=== PATIENT | male | born 1955 | race American Indian/Alaskan Native ===

== ENCOUNTER 2017-07-22 11:48 | Inpatient (IN) | payer MEDICAID, OTHER ==
[2017-07-22 11:49] VITALS: BMI 20.5
--- NOTE | 2017-07-22 13:02 | C.PDOC ---
Time Seen by Provider: 07/22/17 12:32 Chief Complaint (Nursing): Chest Pain History Per: Patient History/Exam Limitations: no limitations Past Medical History Vital Signs: Last Vital Signs Temp 97.9 F 07/22/17 12:04 Pulse 81 07/22/17 12:04 Resp 18 07/22/17 12:04 BP 119/74 07/22/17 12:04 Pulse Ox 100 07/22/17 12:04 - Medical History PMH: Anxiety, Asthma, Cardia Arrhythmia, Depression, HTN, Hypercholesterolemia, Kidney Stones, Pneumonia, Chronic Kidney Disease, Schizophrenia Denies: Diabetes, Hepatitis, HIV, Seizures, Sexually Transmitted Disease Surgical History: Denies: Pacemaker - [facility] Procedures DESTRUCTION OF ASCENDING COLON, ENDO (07/09/15) ENDOSC POLYPECTOMY OF LG INTEST (05/27/15) EXCISION OF STOMACH, ENDO, DIAGN (07/09/15) INDIVID PSYCHOTHERAP NEC (04/28/15) INSERT OF MONITOR DEV INTO CHEST SUBCU/FASCIA, OPEN APPROACH (07/17/16) MEASURE OF ARTERIAL PRESSURE, PERIPHERAL, LOCKER ATTENDANT APPROACH (07/17/16) MEASUREMENT OF CARDIAC RHYTHM, EXTERNAL APPROACH (07/17/16) PSYCHIAT DRUG THERAP NEC (05/19/15) SUPPOR VERBAL PSYCHOTHER (04/28/15) Family History: States: Unknown Family Hx - Social History Hx Tobacco Use: No Hx Alcohol Use: No Hx Substance Use: Yes - Immunization History Hx Tetanus Toxoid Vaccination: Yes Hx Influenza Vaccination: Yes Hx Pneumococcal Vaccination: Yes ED Course And Treatment O2 Sat by Pulse Oximetry: 100 Disposition - Disposition Forms: [employer] (Hebrew) - Scribe Statement The provider has reviewed the documentation as recorded by the Scribangelic Gardner All medical record entries made by the Scribe were at my direction and personally dictated by me. I have reviewed the chart and agree that the record accurately reflects my personal performance of the history, physical exam, medical decision making, and the department course for this patient. I have also personally directed, reviewed, and agree with the discharge instructions and disposition.
--- NOTE | 2017-07-22 13:05 | C.PDOC ---
History Of Present Illness Patient is a 62 y/o M with hx of frequent falls, with loop monitor, presenting with dizziness. Patient reports that he became lightheaded today and fell. He reports that he hit his head when he fell but denies LOC. Reports some chest pain today. Also complaining of 1 week history of pain around loop monitor site. PMD: Dr. Parker Coating Engineer: Matt Higgins Time Seen by Provider: 07/22/17 12:32 Chief Complaint (Nursing): Chest Pain Past Medical History Vital Signs: Last Vital Signs Temp 97.9 F 07/22/17 12:04 Pulse 64 07/22/17 14:45 Resp 16 07/22/17 14:45 BP 134/86 07/22/17 14:45 Pulse Ox 100 07/22/17 14:51 - Medical History PMH: Anxiety, Asthma, Cardia Arrhythmia, Depression, HTN, Hypercholesterolemia, Kidney Stones, Pneumonia, Chronic Kidney Disease, Schizophrenia Denies: Diabetes, Hepatitis, HIV, Seizures, Sexually Transmitted Disease Surgical History: Denies: Pacemaker - [facility] Procedures DESTRUCTION OF ASCENDING COLON, ENDO (07/09/15) ENDOSC POLYPECTOMY OF LG INTEST (05/27/15) EXCISION OF STOMACH, ENDO, DIAGN (07/09/15) INDIVID PSYCHOTHERAP NEC (04/28/15) INSERT OF MONITOR DEV INTO CHEST SUBCU/FASCIA, OPEN APPROACH (07/17/16) MEASURE OF ARTERIAL PRESSURE, PERIPHERAL, BOILER COVERER APPROACH (07/17/16) MEASUREMENT OF CARDIAC RHYTHM, EXTERNAL APPROACH (07/17/16) PSYCHIAT DRUG THERAP NEC (05/19/15) SUPPOR VERBAL PSYCHOTHER (04/28/15) Family History: States: Unknown Family Hx - Social History Hx Tobacco Use: No Hx Alcohol Use: No Hx Substance Use: Yes - Immunization History Hx Tetanus Toxoid Vaccination: Yes Hx Influenza Vaccination: Yes Hx Pneumococcal Vaccination: Yes Review Of Systems Constitutional: Negative for: Fever, Chills Cardiovascular: Positive for: Chest Pain, Light Headedness Respiratory: Negative for: Cough, Shortness of Breath, SOB with Excertion, Wheezing Gastrointestinal: Negative for: Nausea, Vomiting, Abdominal Pain, Diarrhea, Constipation Neurological: Positive for: Dizziness. Negative for: Headache Physical Exam - Physical Exam Appears: Well, Non-toxic Skin: Normal Color, Warm, Dry Head: Atraumatic, Normacephalic Eye(s): bilateral: Normal Inspection, PERRL, EOMI Neck: Supple Chest: Symmetrical, Other (Loop monitor to L chest pain, non-tender, no surrounding erythema) Cardiovascular: Rhythm Regular Respiratory: No Rales, No Rhonchi, No Wheezing Gastrointestinal/Abdominal: Soft, No Tenderness Back: Normal Inspection Extremity: Normal ROM Neurological/Psych: Oriented x3 Gait: Steady ED Course And Treatment - Laboratory Results Result Diagrams: 07/22/17 13:12 07/22/17 13:12 O2 Sat by Pulse Oximetry: 100 (RA) - CT Scan/US CT HEAD WITHOUT CONTRAST Other Rad Studies (CT/US): Read By Radiologist, Radiology Report Reviewed CT/US Interpretation: FINDINGS: HEMORRHAGE: No intracranial hemorrhage. BRAIN : No mass effect or edema. Scattered focal lucencies in the subcortical and periventricular white matter suggestive for chronic microvascular ischemic change. VENTRICLES: Unremarkable. No hydrocephalus. CALVARIUM: Deformity of the left zygomatic arch. PARANASAL SINUSES: Prominent mucosal retention cyst and or polyp in the right maxillary sinus measuring 2.3 x 1.7 centimeters. MASTOID AIR CELLS: Unremarkable as visualized. No inflammatory changes. OTHER FINDINGS: Study somewhat limited by patient positioning. IMPRESSION: No acute intracranial abnormality. Mild chronic microvascular ischemic changes. 2.2 centimeter mucosal retention cyst and or polyp in the right maxillary sinus. Persistent deformity of the left zygomatic arch which may represent chronic fracture deformity. If symptoms persist, consider further evaluation with MRI. Medical Decision Making Medical Decision Making: EKG shows NSR at 78bpm with sinus arrhythmia with LVH, no acute ST changes. CT performed to r/o intracranial injury. Aspirin given after negative CT. Trop negative. Spoke to Dr. Parker who is requesting admission to hospitalist. Spoke to Dr. Rodrigues. Will transfer to tele observation for near syncope, chest pain, and for further interrogation of loop monitor Disposition - Disposition Disposition: HOSPITALIZED Disposition Time: 14:49 Condition: FAIR - Clinical Impression Clinical Impression: Dizziness
[2017-07-22 13:28] LABS: BASO % 0.5 % (0.0-2.0); EOS % 0.4 % (0.0-4.0); LYMPH # 0.9 K/uL (1.0-4.3); LYMPH % 16.8 % (20.0-40.0); MEAN CELL VOLUME 82.3 fL (80.0-94.0); MEAN CORPUSCULAR HEMOGLOBIN 27.2 pg (27.0-31.0); MEAN CORPUSCULAR HGB CONC 33.1 g/dL (33.0-37.0); MEAN PLATELET VOLUME 8.3 fL (7.2-11.7); MONO # 0.3 K/uL (0.0-0.8); RED CELL DISTRIBUTION WIDTH 14.3 % (11.5-14.5); WHITE BLOOD COUNT 5.6 K/uL (4.8-10.8)
[2017-07-22 13:34] LABS: CHLORIDE 101 mmol/L (98-107); INR 1.1; POTASSIUM 3.9 mmol/L (3.6-5.2); SODIUM 137 mmol/L (132-148)
[2017-07-22 13:36] LABS: AST/SGOT 17 U/L (17-59); BILIRUBIN,TOTAL 0.7 mg/dL (0.2-1.3); CARBON DIOXIDE 26 mmol/L (22-30); GFR AFRICAN-AMERICAN > 60; TOTAL PROTEIN 8.6 g/dL (6.3-8.3)
[2017-07-22 13:37] LABS: ALKALINE PHOSPHATASE 68 U/L (38-126); ALT/SGPT 27 U/L (21-72); BLOOD UREA NITROGEN 19 mg/dL (9-20); CALCIUM 9.8 mg/dl (8.6-10.4); GLUCOSE,RANDOM 82 mg/dL (75-110)
--- NOTE | 2017-07-22 13:59 | RAD ---
HISTORY: chest pain COMPARISON: Comparison made with chest radiograph and CTA of the chest 08/27/2016 and 08/28/2016 respectively. FINDINGS: LUNGS: No active pulmonary disease. PLEURA: No significant pleural effusion identified, no pneumothorax apparent. CARDIOVASCULAR: Small elliptical shaped radiopaque gate supervisor device within the soft tissues of the left anterior chest wall unchanged from prior studies. OSSEOUS STRUCTURES: No significant abnormalities. VISUALIZED UPPER ABDOMEN: Normal. OTHER FINDINGS: None. IMPRESSION: No acute infiltrate or effusion.
--- NOTE | 2017-07-22 14:40 | CT ---
PROCEDURE: CT HEAD WITHOUT CONTRAST. HISTORY: head trauma from fall COMPARISON: 08/28/2016 TECHNIQUE: Axial computed tomography images were obtained through the head/brain without intravenous contrast. Radiation dose: Total exam DLP = 922 mGy-cm. This CT exam was performed using one or more of the following dose reduction techniques: Automated exposure control, adjustment of the mA and/or kV according to patient size, and/or use of iterative reconstruction technique. FINDINGS: HEMORRHAGE: No intracranial hemorrhage. BRAIN: No mass effect or edema. Scattered focal lucencies in the subcortical and periventricular white matter suggestive for chronic microvascular ischemic change. VENTRICLES: Unremarkable. No hydrocephalus. CALVARIUM: Deformity of the left zygomatic arch. PARANASAL SINUSES: Prominent mucosal retention cyst and or polyp in the right maxillary sinus measuring 2.3 x 1.7 centimeters. MASTOID AIR CELLS: Unremarkable as visualized. No inflammatory changes. OTHER FINDINGS: Study somewhat limited by patient positioning. IMPRESSION: No acute intracranial abnormality. Mild chronic microvascular ischemic changes. 2.2 centimeter mucosal retention cyst and or polyp in the right maxillary sinus. Persistent deformity of the left zygomatic arch which may represent chronic fracture deformity. If symptoms persist, consider further evaluation with MRI.
[2017-07-22] MEDS ORDERED: Morphine 4 MG/ML VIAL ONE (14:43)
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
[2017-07-22] MEDS ORDERED: Iohexol 300 100 ML IJ ONE (17:39)
--- NOTE | 2017-07-22 19:58 | CT ---
EXAM: CT Chest With Intravenous Contrast CLINICAL HISTORY: 62 years old, male; Signs and symptoms; Abdominal tenderness and other: Weight loss; Shortness of breath; Additional info: Failure to thrive, weight loss, tabacco and cocain TECHNIQUE: Axial computed tomography images of the chest with intravenous contrast. All CT scans at this facility use one or more dose reduction techniques, viz.: automated exposure control; ma/kV adjustment per patient size (including targeted exams where dose is matched to indication; i.e. head); or iterative reconstruction technique. Coronal and sagittal reformatted images were created and reviewed. CONTRAST: 100 mL of visipaque 320 administered intravenously. COMPARISON: Prior images are not available for review. FINDINGS: Lungs and pleural spaces: Trachea and main bronchi are patent. There are multiple small blebs at the lung apices. There is a 5 mm left apical nodule. There is no focal consolidation. There is minimal dependent atelectasis. There is minimal scarring at the lung bases. There are no effusions. Heart and Vasculature: Heart size is normal. There is no pericardial effusion.There is no aneurysm or dissection. There is perfusion of the 3 arch vessels pulmonary vessels are normal in caliber. There are no central pulmonary emboli. Bolus timing limits evaluation of peripheral vessels. Mediastinum: The esophagus is unremarkable. There are no pathologically enlarged mediastinal or hilar nodes. There are degenerative changes in the bony structures. Thyroid: Thyroid is heterogeneous with small nodules. Bones/joints: There are degenerative changes in the osseus structures. Soft tissues: unremarkable Upper abdomen: Report to follow report for abdominal findings IMPRESSION: Early paraseptal emphysematous changes, no focal pneumonia; 5 mm left apical nodule infectious/inflammatory versus neoplastic; no focal pneumonia; small thyroid nodules As per Fleischner Society guidelines for follow-up and management of pulmonary nodules: For patients at low risk (minimal or absent history of smoking and of other known risk factors), recommend follow-up chest CT at 12 months; if unchanged, no further follow-up. For patient at high risk (history of smoking or of other known risk factors), recommend initial follow-up chest CT at 6-12 months, then at 18-24 months if no interval change. EXAM: CT Abdomen and Pelvis With Intravenous Contrast EXAM DATE/TIME: 07/22/2017 4:17 PM CLINICAL HISTORY: 62 years old, male; Signs and symptoms; Abdominal tenderness and other: Weight loss; Shortness of breath; Additional info: Failure to thrive, weight loss, tabacco and cocain TECHNIQUE: Axial computed tomography images of the abdomen and pelvis with intravenous contrast. All CT scans at this facility use one or more dose reduction techniques, viz.: automated exposure control; ma/kV adjustment per patient size (including targeted exams where dose is matched to indication; i.e. head); or iterative reconstruction technique. Coronal and sagittal reformatted images were created and reviewed. CONTRAST: 100 mL of visipaque 320 administered intravenously. COMPARISON: Prior images are not available for review. FINDINGS: Lower thorax: Refer to prior report for chest findings ABDOMEN: Liver: There are multiple small low attenuation hepatic lesions. Largest are consistent with cysts cysts. Smaller lesions are too small to characterize Gallbladder and bile ducts: Gallbladder is partially distended. Common duct is prominent. There is mild prominence of intrahepatic biliary radicles Pancreas: Pancreas is mildly atrophic. No focal lesions are seen in the pancreas. Spleen: unremarkable Adrenals: unremarkable Kidneys and ureters: There are bilateral renal cysts. There are multiple additional small low attenuation renal lesions too small to characterize. There is no pelvocaliectasis or ureterectasis. Stomach and bowel: Stomach is distended with a large amount of ingested material. Rotation is normal. There are is fluid and air throughout the small bowel. There is no obstruction. Ileocecal region is unremarkable. Appendix is unremarkable. Colon is incompletely distended which limits evaluation. Appendix: See stomach and bowel PELVIS: Bladder: Bladder is almost empty. Reproductive: The prostate is enlarged.Seminal vesicles have the expected configuration. Subperitoneal space: The presacral soft tissues are unremarkable. ABDOMEN and PELVIS: Intraperitoneal space: There is no free air or free fluid. Bones/joints: There are degenerative changes in the osseus structures. Soft tissues: There is a tiny fat-containing supraumbilical ventral hernia. Vasculature: There are vascular calcifications. There are multiple phleboliths. Lymph nodes: There is no pathologic adenopathy. IMPRESSION: Mild intra-extrahepatic biliary ductal dilatation, etiology unclear; no acute solid visceral or bowel abnormality; hepatic and renal cysts
--- NOTE | 2017-07-22 20:19 | CP.PCM.CON ---
History of Present Illness - History of Present Illness History of Present Illness: patient seen/examined. chest pain at the site of previous LOOP recorder. Signficant weight loss. recommend consult Dr. Jordan for Loop removal. Past Patient History - Infectious Disease Hx of Infectious Diseases: None - Tetanus Immunizations Tetanus Immunization: Unknown - Past Medical History & Family History Past Medical History?: Yes - Past Social History Smoking Status: Light Smoker < 10 Cigarettes Daily - CARDIAC Hx Cardia Arrhythmia: Yes Hx Hypercholesterolemia: Yes Hx Hypertension: Yes Hx Pacemaker: No - PULMONARY Hx Asthma: Yes Hx Pneumonia: Yes - NEUROLOGICAL Hx Seizures: No - HEENT Hx HEENT Problems: Yes Other/Comment: Blurred vision both eyes - RENAL Hx Chronic Kidney Disease: Yes Hx Kidney Stones: Yes - ENDOCRINE/METABOLIC Hx Endocrine Disorders: No - HEMATOLOGICAL/ONCOLOGICAL Hx Human Immunodeficiency Virus (HIV): No - INTEGUMENTARY Hx Dermatological Problems: No - MUSCULOSKELETAL/RHEUMATOLOGICAL Hx Falls: Yes - GASTROINTESTINAL Hx Gastrointestinal Disorders: Yes Other/Comment: Hx. of rectal bleeding - GENITOURINARY/GYNECOLOGICAL Hx Sexually Transmitted Disorders: No - PSYCHIATRIC Hx Anxiety: Yes Hx Depression: Yes Hx Schizophrenia: Yes Hx Substance Use: No - SURGICAL HISTORY Hx Surgeries: Yes Other/Comment: left shoulder surgery secondary to torn ligaments, head surgery 2x secondary to trauma 25 years ago - ANESTHESIA Hx Anesthesia: Yes Hx Anesthesia Reactions: No Hx Malignant Hyperthermia: No Has any member of the family had a problem w/ anesthesia?: No Meds Allergies/Adverse Reactions: Allergies Allergy/AdvReac Type Severity Reaction Status Date / Time No Known Allergies Allergy Verified 07/22/17 12:04 - Medications Medications: Current Medications Heparin Sodium (Porcine) (Heparin) 5,000 units SC Q8 VENESSA Ketorolac Tromethamine (Toradol) 30 mg IVP Q6 PRN PRN Reason: moderate pain Last Admin: 07/22/17 18:55 Dose: 30 mg Pantoprazole Sodium (Protonix Ec Tab) 40 mg PO DAILY VENESSA Pneumococcal Polyvalent Vaccine (Pneumovax 23 Vaccine) 0.5 ml IM .ONCE ONE Stop: 07/24/17 10:01 Results - Vital Signs Recent Vital Signs: Last Vital Signs Temp 97.8 F 07/22/17 17:04 Pulse 90 07/22/17 18:16 Resp 20 07/22/17 18:16 BP 134/60 07/22/17 17:04 Pulse Ox 99 07/22/17 17:04 - Labs Result Diagrams: 07/22/17 13:12 07/22/17 13:12 Labs: Laboratory Results - last 24 hr 07/22/17 07/22/17 07/22/17 13:12 13:12 13:12 WBC 5.6 RBC 5.09 Hgb 13.9 Hct 42.0 MCV 82.3 D MCH 27.2 MCHC 33.1 RDW 14.3 Plt Count 228 MPV 8.3 Neut % (Auto) 76.3 H Lymph % (Auto) 16.8 L [place] % (Auto) 6.0 Eos % (Auto) 0.4 Baso % (Auto) 0.5 Neut # 4.3 Lymph # 0.9 L [place] # 0.3 Eos # 0.0 Baso # 0.0 PT 12.1 INR 1.1 APTT 36 H Sodium 137 Potassium 3.9 Chloride 101 Carbon Dioxide 26 Anion Gap 15 BUN 19 Creatinine 1.1 Est GFR ( Amer) > 60 Est GFR (Non-Af Amer) > 60 Random Glucose 82 Calcium 9.8 Phosphorus 3.0 Magnesium 2.0 Total Bilirubin 0.7 AST 17 ALT 27 Alkaline Phosphatase 68 Troponin I < 0.0120 Total Protein 8.6 H Albumin 4.2 Globulin 4.3 H Albumin/Globulin Ratio 1.0 Urine Opiates Screen Urine Methadone Screen Ur Barbiturates Screen Ur Phencyclidine Scrn Ur Amphetamines Screen U Benzodiazepines Scrn U Oth Cocaine Metabols U Cannabinoids Screen 07/22/17 16:29 WBC RBC Hgb Hct MCV MCH MCHC RDW Plt Count MPV Neut % (Auto) Lymph % (Auto) [place] % (Auto) Eos % (Auto) Baso % (Auto) Neut # Lymph # [place] # Eos # Baso # PT INR APTT Sodium Potassium Chloride Carbon Dioxide Anion Gap BUN Creatinine Est GFR ( Amer) Est GFR (Non-Af Amer) Random Glucose Calcium Phosphorus Magnesium Total Bilirubin AST ALT Alkaline Phosphatase Troponin I Total Protein Albumin Globulin Albumin/Globulin Ratio Urine Opiates Screen Positive Urine Methadone Screen Negative Ur Barbiturates Screen Negative Ur Phencyclidine Scrn Negative Ur Amphetamines Screen Negative U Benzodiazepines Scrn Negative U Oth Cocaine Metabols Positive U Cannabinoids Screen Negative
[2017-07-23 07:35] LABS: BASO % 0.3 % (0.0-2.0); EOS # 0.1 K/uL (0.0-0.7); EOS % 2.4 % (0.0-4.0); HEMATOCRIT 39.9 % (35.0-51.0); LYMPH # 1.8 K/uL (1.0-4.3); MEAN CELL VOLUME 81.8 fL (80.0-94.0); MEAN CORPUSCULAR HEMOGLOBIN 27.1 pg (27.0-31.0); MEAN CORPUSCULAR HGB CONC 33.2 g/dL (33.0-37.0); MEAN PLATELET VOLUME 8.2 fL (7.2-11.7); MONO # 0.5 K/uL (0.0-0.8); NRBC % 0.1 % (0.0-2.0); RED CELL DISTRIBUTION WIDTH 14.8 % (11.5-14.5); WHITE BLOOD COUNT 5.4 K/uL (4.8-10.8)
[2017-07-23 08:10] LABS: CHLORIDE 99 mmol/L (98-107); SODIUM 133 mmol/L (132-148)
[2017-07-23 08:11] LABS: POTASSIUM 4.3 mmol/L (3.6-5.2)
[2017-07-23 08:13] LABS: ALB/GLOB RATIO 1.2 (1.0-2.1); BILIRUBIN,TOTAL 0.5 mg/dL (0.2-1.3); CARBON DIOXIDE 27 mmol/L (22-30); CHOLESTEROL 165 mg/dL (0-199); GFR AFRICAN-AMERICAN > 60; TOTAL PROTEIN 6.8 g/dL (6.3-8.3)
[2017-07-23 08:14] LABS: ALKALINE PHOSPHATASE 84 U/L (38-126); ALT/SGPT 23 U/L (21-72); AST/SGOT 14 U/L (17-59); BLOOD UREA NITROGEN 23 mg/dL (9-20); CALCIUM 9.1 mg/dl (8.6-10.4); GLUCOSE,RANDOM 94 mg/dL (75-110)
[2017-07-23 08:44] LABS: THYROID STIMULATING HORMONE 2.57 mIU/L (0.46-4.68)
[2017-07-23] MEDS: Pantoprazole 40 mg EC Tab PO SCH (11:00)
--- NOTE | 2017-07-23 12:03 | CP.PCM.PN ---
<Joselito Schwartz - Last Filed: 07/23/17 12:08> Subjective - Date & Time of Evaluation Date of Evaluation: 07/23/17 Time of Evaluation: 11:58 - Subjective Subjective: PGY1 Medicine Note for Dr. Rodrigues Patient seen and examined at bedside this morning. Patient reports dizziness upon standing and states that he has a fear of falling so he lays in bed. This has been a chronic problem for him. He reports loss of balance and falls. He fell yesterday which was the reason he came to the hospital. Patient is complaining of left side chest pain that radiates to his left shoulder. This is the same pain that he had upon admission to the hospital. The pain is worse when he takes a deep breath or when someone presses on his chest. He reports having a loop recorder placed one year to 18 months ago but does not remember who placed it. He has been experiencing this pain for a few days now. Denies any other complaints at this time. Denies f/c, n/v, d/c, sob, abdominal pain, headaches. Objective - Vital Signs/Intake and Output Vital Signs (last 24 hours): Temp Pulse Resp BP Pulse Ox 98.0 F 54 L 18 108/66 99 07/23/17 07:10 07/23/17 07:10 07/23/17 07:10 07/23/17 07:10 07/23/17 07:10 Intake and Output: 07/23/17 07/23/17 06:59 18:59 Intake Total 400 Balance 400 - Medications Medications: Current Medications Heparin Sodium (Porcine) (Heparin) 5,000 units SC Q8 [facility] Last Admin: 07/23/17 06:56 Dose: 5,000 units Ketorolac Tromethamine (Toradol) 30 mg IVP Q6 PRN PRN Reason: moderate pain Last Admin: 07/23/17 08:28 Dose: 30 mg Pantoprazole Sodium (Protonix Ec Tab) 40 mg PO DAILY [facility] Last Admin: 07/23/17 11:00 Dose: 40 mg Pneumococcal Polyvalent Vaccine (Pneumovax 23 Vaccine) 0.5 ml IM .ONCE ONE Stop: 07/24/17 10:01 - Labs Labs: 07/23/17 07:27 07/23/17 07:27 PT 12.1 SECONDS (9.7-12.2) 07/22/17 13:12 INR 1.1 07/22/17 13:12 APTT 36 SECONDS (21-34) H 07/22/17 13:12 - Constitutional Appears: Non-toxic, No Acute Distress, Other (very skinny) - Head Exam Head Exam: ATRAUMATIC, NORMOCEPHALIC - Eye Exam Eye Exam: EOMI, Normal appearance. absent: Scleral icterus - ENT Exam ENT Exam: Mucous Membranes Moist - Neck Exam Neck Exam: absent: Lymphadenopathy, Tenderness - Respiratory Exam Respiratory Exam: Clear to Ausculation Bilateral, NORMAL BREATHING PATTERN. absent: Accessory Muscle Use, Rales, Wheezes, Respiratory Distress - Cardiovascular Exam Cardiovascular Exam: REGULAR RHYTHM, +S1, +S2 Additional comments: reproducible chest pain on palpation on left side of chest. Patient states pain radiates to his left shoulder. - GI/Abdominal Exam GI & Abdominal Exam: Soft, Normal Bowel Sounds. absent: Distended, Firm, Guarding, Rigid, Tenderness - Extremities Exam Extremities Exam: Normal Capillary Refill, Normal Inspection. absent: Calf Tenderness, Pedal Edema - Back Exam Back Exam: absent: CVA tenderness (L), CVA tenderness (R), paraspinal tenderness , vertebral tenderness - Neurological Exam Neurological Exam: Alert, Awake, CN II-XII Intact, Oriented x3 - Psychiatric Exam Psychiatric exam: Depressed (pt is very close with his father, who was recently admitted to the hospital and is appearently not doing well, per patient), Normal Affect - Skin Skin Exam: Dry, Normal Color, Warm Assessment and Plan - Assessment and Plan (Free Text) Plan: Vertigo CT head showed: No acute intracranial abnormality. Mild chronic microvascular ischemic changes. 2.2 centimeter mucosal retention cyst and or polyp in the right maxillary sinus. Persistent deformity of the left zygomatic arch which may represent chronic fracture deformity. 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 Hx of loop recorder placed last year 07/[address] Kinsey. Pt never followed up as instructed. Toradol 30mg IV q6H PRN. STACI neg x2. F/U STACI x3 TSH 2.57 Loop recorder management as per Dr. Higgins. * Dr. Kinsey consulted for Loop Recorder removal, per Dr. Higgins Hx of substance use F/U urine drug screen. Failure to thrive 20 pounds weight loss in 2 months per pt. Pt had similar complains in 2015 with negative workup. Hx of smoking and polysubstance use. Patient had colonoscopy 07/2015 that showed colonic polyps that were hyperplastic with tubular adenoma. [employer] consulted. CT chest 07/22 - Early paraseptal emphysematous changes, no focal pneumonia; 5 mm left apical nodule infectious/inflammatory versus neoplastic; no focal pneumonia; small thyroid nodules * As per Fleischner Society guidelines for follow-up and management of pulmonary nodules: For patients at low risk (minimal or absent history of smoking and of other known risk factors), recommend follow-up chest CT at 12 months; if unchanged, no further follow-up. For patient at high risk (history of smoking or of other known risk factors), recommend initial follow-up chest CT at 6-12 months, then at 18-24 months if no interval change. CT abd and pelvis 07/22 - Mild intra-extrahepatic biliary ductal dilatation, etiology unclear; no acute solid visceral or bowel abnormality; hepatic and renal cysts urine drug screen - positive for cocaine and opioids. Patient denies opioids use (used to use heroin 10months ago) - pt was given morphine in ED prior to UDS. F/U HIV F/U hepatitis panel Depression Psych Dr. Nieves consulted, help appreciated. Prophylactic measure SCD, HepSQ, Protonix. Case discussed with Dr. Lilia Yee Efren PGY1 <Jin Rodrigues - Last Filed: 07/23/17 15:22> Objective - Vital Signs/Intake and Output Vital Signs (last 24 hours): Temp Pulse Resp BP Pulse Ox 98.0 F 54 L 18 108/66 99 07/23/17 07:10 07/23/17 07:10 07/23/17 07:10 07/23/17 07:10 07/23/17 07:10 Intake and Output: 07/23/17 07/23/17 06:59 18:59 Intake Total 400 Balance 400 - Medications Medications: Current Medications Heparin Sodium (Porcine) (Heparin) 5,000 units SC Q8 VENESSA Last Admin: 07/23/17 14:41 Dose: 5,000 units Ketorolac Tromethamine (Toradol) 30 mg IVP Q6 PRN PRN Reason: moderate pain Last Admin: 07/23/17 14:40 Dose: 30 mg Pantoprazole Sodium (Protonix Ec Tab) 40 mg PO DAILY VENESSA Last Admin: 07/23/17 11:00 Dose: 40 mg Pneumococcal Polyvalent Vaccine (Pneumovax 23 Vaccine) 0.5 ml IM .ONCE ONE Stop: 07/24/17 10:01 - Labs Labs: 07/23/17 07:27 07/23/17 07:27 PT 12.1 SECONDS (9.7-12.2) 07/22/17 13:12 INR 1.1 07/22/17 13:12 APTT 36 SECONDS (21-34) H 07/22/17 13:12 Attending/Attestation - Attestation I have personally seen and examined this patient.: Yes I have fully participated in the care of the patient.: Yes I have reviewed all pertinent clinical information, including history, physical exam and plan: Yes
--- NOTE | 2017-07-23 12:23 | CARD ---
APPROVED REPORT EXAM: Two-dimensional and M-mode echocardiogram with Doppler and color Doppler. Other Information Quality : GoodRhythm : NSR INDICATION Dizziness and Vertigo Chest Pain Syncope 2D DIMENSIONS IVSd1.0 (0.7-1.1cm)LVDd4.0 (3.9-5.9cm) PWd1.0 (0.7-1.1cm)LVDs2.6 (2.5-4.0cm) FS (%) 35.4 %LVEF (%)65.3 (>50%) M-Mode DIMENSIONS Left Atrium (MM)3.52 (2.5-4.0cm)Aortic Root3.69 (2.2-3.7cm) Aortic Cusp Exc.2.34 (1.5-2.0cm) Mitral Valve MV E Cxupsqkv70.1cm/sMV A Xhqhsfoh71.4cm/sE/A ratio1.0 TDI E/Lateral E'0.0E/Medial E'0.0 Tricuspid Valve TR Peak [id number]/sTR Peak [id number] LEFT VENTRICLE The left ventricle is normal size. There is normal left ventricular wall thickness. Left ventricle systolic function is normal. The Ejection Fraction is 65-70%. There is normal LV segmental wall motion. The left ventricular diastolic function is normal. There is no ventricular septal defect visualized. RIGHT VENTRICLE The right ventricle is normal size. The right ventricular systolic function is normal. ATRIA The left atrium is borderline dilated. The right atrium size is normal. AORTIC VALVE The aortic valve is mildly sclerotic. The aortic valve is probably trileaflet. No aortic regurgitation is present. There is no aortic valvular stenosis. MITRAL VALVE The mitral valve is normal in structure. There is no evidence of mitral valve prolapse. Mitral regurgitation is trace. TRICUSPID VALVE The tricuspid valve is normal in structure. There is trace tricuspid regurgitation. There is no pulmonary hypertension. PULMONIC VALVE The pulmonic valve is not well visualized. There is no pulmonic valvular regurgitation. GREAT VESSELS The aortic root is mildly enlarged. The ascending aorta is normal in size. The IVC is normal in size and collapses >50% with inspiration. PERICARDIAL EFFUSION There is no pericardial effusion. <Conclusion> Left ventricle systolic function is normal. The Ejection Fraction is 65-70%. The left ventricular diastolic function is normal. No aortic regurgitation is present. The aortic root is mildly enlarged. Mitral regurgitation is trace.
--- NOTE | 2017-07-23 14:37 | PCM.PSYCH ---
Initial Psychiatric Evaluation - Initial Psychiatric Evaluation Type of Admission: Voluntary Legal Status: Capacity Chief Complaint (in patient's own words): "Im in a lot of pain" History of Present Illness and Precipitating Events[facility] and recent substance use Pt is a 62 year old male with a PMH of High cholesterol and Vertigo who presented to the ED on 07/22/2017 because he was experiencing pain in the area where his loop recorder is located. Pt reports that lately his depression "comes and goes". He states this stems from learning his father has been diagnosed with cancer and his mother's recent decline in health. He states he feels "helpless" since he cant be with his parents who live far. Pt also reports that 3 days ago he smoked cocaine in order to "relieve some of this pain". Pt reports sporadic use in the past but increased it recently due to current life stressors. Pt denies any other substance use. Denies alcohol use. Smokes 4 cigarettes a day. Pt reports a psychiatric history of Bipolar disorder and Schizophrenia. He reports not taking any psychiatric medications at this time since he stopped taking them approximately 3 years ago when he felt better. After care discussed. Pt mentioned "there are better ways to deal with my depression and my pain than to use cocaine so I know better". Pt reports that he would like to follow up with psych. Current Medications: Active Medications Generic Name Dose Route Start Last Admin Trade Name Freq PRN Reason Stop Dose Admin Heparin Sodium (Porcine) 5,000 units 07/22/17 22:00 07/23/17 06:56 Heparin SC 5,000 units Q8 VENESSA Administration Ketorolac Tromethamine 30 mg 07/22/17 16:28 07/23/17 08:28 Toradol IVP 30 mg Q6 PRN Administration moderate pain Pantoprazole Sodium 40 mg 07/23/17 10:00 07/23/17 11:00 Protonix Ec Tab PO 40 mg DAILY VENESSA Administration Pneumococcal Polyvalent Vaccine 0.5 ml 07/24/17 10:00 Pneumovax 23 Vaccine IM 07/24/17 10:01 .ONCE ONE Past Psychiatric History - Past Psychiatric History Previous Treatment History: Inpatient Pertinent Medical Hx (Current Medical&Sleep Prob, Allergies): Allergies Allergy/AdvReac Type Severity Reaction Status Date / Time No Known Allergies Allergy Verified 07/22/17 12:04 Meclizine [Meclizine*] 25 mg PO Q6 #0 tab 07/23/16 Review of Systems - Review of Systems All systems: reviewed and no additional remarkable complaints except - Psychiatric Psychiatric: Anxiety, Depression, Irritability. absent: Hallucinations, Homicidal Ideation, Suicidal Ideation Mental Status Examination - Personal Presentation Personal Presentation: Looks stated age - Affect Affect: Constricted - Motor Activity Motor Activity: Calm - Reliability in Providing Information Reliability in Providing Information: Good - Speech Speech: Organized - Mood Mood: Depressed - Formal Thought Process Formal Thought Process: No Impairment - Obsessions/Compulsions Obsessions: No Compulsions: No - Cognitive Functions Orientation: Person, Place, Situation, Time Sensorium: Alert Attention/Concentration: Attentive Abstract Thinking: [place] Estimate of Intelligence: Average Judgement: Imparied, as evidence by: Poor judgement, Intact, as evidence by: Insight regarding need for hospitalization Memory: Recent intact, as evidence by: Ability to recall events of the day, Remote intact, as evidenced by: Abilit to recall sig. life events - Risk Risk: Diminished functioning - Strength & Assets Inventory Strength & Assets Inventory: Family support, Skills, Interests/hobbies, Life experience, Cooperative - Limitations Limitations: Living alone DSM 5 DX - DSM 5 DSM 5 Diagnosis: Cocaine use disorder severe Bipolar disorder mixed moderate - Recommended/Plan of Treatment Treatment Recommendations and Plan of Treatment: Cocaine use disorder severe Bipolar disorder mixed moderate
--- NOTE | 2017-07-23 15:34 | VASCLAB ---
PROCEDURE: HISTORY: syncope COMPARISON: None available. TECHNIQUE: Grayscale and duplex Doppler evaluation of the cervical carotid and vertebral arteries were performed. The common carotid, carotid bifurcations and cervical Internal Carotid Artery (ICA) and proximal External Carotid Artery (ECA) were evaluated. The vertebral arteries were evaluated for gross patency and flow direction. Report prepared by Paco Cardenas, BS, RVT FINDINGS: RIGHT CAROTID ARTERIES: 1. Common Carotid Artery: No significant focal plaque formation of the right common carotid artery. Maximum Peak Systolic velocity: 85 cm/sec: End-diastolic velocity 21 cm/sec. 2. Carotid Bifurcation: plaque formation. Maximum Peak Systolic velocity: 88 cm/sec: End-diastolic velocity 18 cm/sec. 3. Internal Carotid Artery: Plaque description: 3.1. Proximal Segment: Peak systolic velocity 87 cm/sec: End-diastolic velocity 31 cm/sec - % stenosis 0-15% 3.2. Middle Segment: Peak systolic velocity 111 cm/sec: End-diastolic velocity 39 cm/sec - % stenosis 0-15% 3.3. Distal Segment: Peak systolic velocity 87 cm/sec: End-diastolic velocity 31 cm/sec - % stenosis 0-15% 4. External Carotid Artery: No significant focal plaque formation. Peak systolic velocity 82 cm/sec 5. ICA/CCA Ratio: 1.3 LEFT CAROTID ARTERIES: 1. Common Carotid Artery: No significant focal plaque formation of the left common carotid artery. Maximum Peak Systolic velocity: 91 cm/sec: End-diastolic velocity 23 cm/sec. 2. Carotid Bifurcation: plaque formation. Maximum Peak Systolic velocity: 81 cm/sec: End-diastolic velocity 18 cm/sec. 3. Internal Carotid Artery: Plaque description: 3.1. Proximal Segment: Peak systolic velocity 68 cm/sec: End-diastolic velocity 26 cm/sec - % stenosis 0-15% 3.2. Middle Segment: Peak systolic velocity 91 cm/sec: End-diastolic velocity 36 cm/sec - % stenosis 0-15% 3.3. Distal Segment: Peak systolic velocity 91 cm/sec: End-diastolic velocity 36 cm/sec - % stenosis 0-15% 4. External Carotid Artery: No significant focal plaque formation. Peak systolic velocity 79 cm/sec 5. ICA/CCA Ratio: 79 VERTEBRAL ARTERIES: 1. Right Vertebral Artery: The right vertebral artery flow direction is antegrade. 2. Left Vertebral Artery: The left vertebral artery flow direction is antegrade. OTHER FINDINGS: 1. Right Brachial Blood pressure: 132 mmHg. 2. Left Brachial Blood pressure: 128 mmHg. IMPRESSION: RIGHT: Duplex scan does not suggest hemodynamically significant stenosis of the right extracranial carotid arteries. LEFT: Duplex scan does not suggest hemodynamically significant stenosis of the left extracranial carotid arteries.
[2017-07-23 16:55] VITALS: RESP 20
--- NOTE | 2017-07-23 19:15 | CARD ---
APPROVED REPORT EKG Measurement Heart [id number] MD [id number] <Conclusion> Normal sinus rhythm with sinus arrhythmia Right atrial enlargement Voltage criteria for left ventricular hypertrophy Abnormal ECG
--- NOTE | 2017-07-24 06:52 | CP.PCM.PN ---
<Joselito Schwartz - Last Filed: 07/24/17 14:09> Subjective - Date & Time of Evaluation Date of Evaluation: 07/24/17 Time of Evaluation: 06:46 - Subjective Subjective: PGY1 Medicine note for Dr. Rodrigues Patient seen and examined at bedside this morning. Patient is still complaining of left sided chest pain radiating to his left shoulder. Patient states he is still experiencing dizziness and loss of balance with standing. He states he needs the nurses assistance to help him to the bathroom because he is afraid of falling. Patient reports while in the bathroom, he noticed bright red blood in his stool and on the tissue paper when he wiped. Patient also reported night sweats last night that caused him to need a new gown and sheets changed. Denies any other symptoms at this time. Objective - Vital Signs/Intake and Output Vital Signs (last 24 hours): Temp Pulse Resp BP Pulse Ox 97.6 F 57 L 20 116/64 98 07/23/17 23:09 07/24/17 05:23 07/24/17 05:23 07/24/17 05:23 07/23/17 23:09 Intake and Output: 07/23/17 07/24/17 18:59 06:59 Intake Total 350 Balance 350 - Medications Medications: Current Medications Heparin Sodium (Porcine) (Heparin) 5,000 units SC Q8 [facility] Last Admin: 07/24/17 05:06 Dose: 5,000 units Ketorolac Tromethamine (Toradol) 30 mg IVP Q6 PRN PRN Reason: moderate pain Last Admin: 07/24/17 05:02 Dose: 30 mg Pantoprazole Sodium (Protonix Ec Tab) 40 mg PO DAILY [facility] Last Admin: 07/23/17 11:00 Dose: 40 mg Pneumococcal Polyvalent Vaccine (Pneumovax 23 Vaccine) 0.5 ml IM .ONCE ONE Stop: 07/24/17 10:01 - Labs Labs: 07/23/17 07:27 07/23/17 07:27 PT 12.1 SECONDS (9.7-12.2) 07/22/17 13:12 INR 1.1 07/22/17 13:12 APTT 36 SECONDS (21-34) H 07/22/17 13:12 - Constitutional Appears: Non-toxic, No Acute Distress - Head Exam Head Exam: ATRAUMATIC, NORMOCEPHALIC - Eye Exam Eye Exam: EOMI, Normal appearance. absent: Scleral icterus - ENT Exam ENT Exam: Mucous Membranes Moist - Neck Exam Neck Exam: Full ROM. absent: Lymphadenopathy, Tenderness - Respiratory Exam Respiratory Exam: Clear to Ausculation Bilateral, NORMAL BREATHING PATTERN. absent: Accessory Muscle Use, Rales, Wheezes, Respiratory Distress - Cardiovascular Exam Cardiovascular Exam: REGULAR RHYTHM, +S1, +S2 Additional comments: reproducible chest pain on palpation on left side of chest. Patient states pain radiates to his left shoulder. - GI/Abdominal Exam GI & Abdominal Exam: Soft, Normal Bowel Sounds. absent: Distended, Firm, Guarding, Rigid, Tenderness - Extremities Exam Extremities Exam: Normal Capillary Refill, Normal Inspection. absent: Calf Tenderness, Pedal Edema, Tenderness - Neurological Exam Neurological Exam: Alert, Awake, Oriented x3 - Psychiatric Exam Psychiatric exam: Normal Affect, Normal Mood - Skin Skin Exam: Dry, Normal Color, Warm Assessment and Plan - Assessment and Plan (Free Text) Plan: Vertigo CT head 07/22/17 - No acute intracranial abnormality. Mild chronic microvascular ischemic changes. 2.2 centimeter mucosal retention cyst and or polyp in the right maxillary sinus. Persistent deformity of the left zygomatic arch which may represent chronic fracture deformity. ECHO 07/22/17 - Left ventricle systolic function is normal. The Ejection Fraction is 65-70%. The left ventricular diastolic function is normal. No aortic regurgitation is present. The aortic root is mildly enlarged. Mitral regurgitation is trace. 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 Hx of loop recorder placed last year 07/[address] Kinsey. Pt never followed up as instructed. Toradol 30mg IV q6H PRN. Percocet 5/325mg PO q6H PRN STACI neg x3 TSH 2.57 Loop recorder management as per Dr. Higgins. * Dr. Kinsey consulted for Loop Recorder removal, per Dr. Higgins Reported Blood in stool Started on Colace 100mg BID f/u fecal occult Hx of substance use urine drug screen - positive for cocaine and opioids. Patient denies opioids use (stated he used to use heroin 10months ago yesterday but stated today he has never abused opioids including heroin) - pt was given morphine in ED prior to UDS. Failure to thrive 20 pounds weight loss in 2 months per pt. Pt had similar complains in 2015 with negative workup. Hx of smoking and polysubstance use. Patient had colonoscopy 07/2015 that showed colonic polyps that were hyperplastic with tubular adenoma. [employer] consulted. CT chest 07/22 - Early paraseptal emphysematous changes, no focal pneumonia; 5 mm left apical nodule infectious/inflammatory versus neoplastic; no focal pneumonia; small thyroid nodules * As per Fleischner Society guidelines for follow-up and management of pulmonary nodules: For patients at low risk (minimal or absent history of smoking and of other known risk factors), recommend follow-up chest CT at 12 months; if unchanged, no further follow-up. For patient at high risk (history of smoking or of other known risk factors), recommend initial follow-up chest CT at 6-12 months, then at 18-24 months if no interval change. CT abd and pelvis 07/22 - Mild intra-extrahepatic biliary ductal dilatation, etiology unclear; no acute solid visceral or bowel abnormality; hepatic and renal cysts F/U HIV hepatitis panel - all negative Depression Psych Dr. Nieves consulted, help appreciated. Prophylactic measure SCD, HepSQ, Protonix. Case discussed with Dr. Lilia Yee Efren PGY1 <Jin Rodrigues - Last Filed: 07/24/17 15:55> Objective - Vital Signs/Intake and Output Vital Signs (last 24 hours): Temp Pulse Resp BP Pulse Ox 97.9 F 55 L 20 109/61 99 07/24/17 15:34 07/24/17 15:34 07/24/17 15:34 07/24/17 15:34 07/24/17 15:34 Intake and Output: 07/24/17 07/24/17 06:59 18:59 Intake Total 400 Balance 400 - Medications Medications: Current Medications Docusate Sodium (Colace) 100 mg PO BID [facility] Last Admin: 07/24/17 10:46 Dose: 100 mg Heparin Sodium (Porcine) (Heparin) 5,000 units SC Q8 [facility] Last Admin: 07/24/17 13:31 Dose: 5,000 units Ketorolac Tromethamine (Toradol) 30 mg IVP Q6 PRN PRN Reason: moderate pain Last Admin: 07/24/17 05:02 Dose: 30 mg Oxycodone/Acetaminophen (Percocet 5/325 Mg Tab) 1 tab PO Q6H PRN PRN Reason: Pain, severe (8-10) Stop: 07/27/17 10:16 Last Admin: 07/24/17 11:41 Dose: 1 tab Pantoprazole Sodium (Protonix Ec Tab) 40 mg PO DAILY [facility] Last Admin: 07/24/17 09:03 Dose: 40 mg - Labs Labs: 07/23/17 07:27 07/23/17 07:27 PT 12.1 SECONDS (9.7-12.2) 07/22/17 13:12 INR 1.1 07/22/17 13:12 APTT 36 SECONDS (21-34) H 07/22/17 13:12 Attending/Attestation - Attestation I have personally seen and examined this patient.: Yes I have fully participated in the care of the patient.: Yes I have reviewed all pertinent clinical information, including history, physical exam and plan: Yes Notes (Text): 07/24/17 15:55 Medical attending: Patient was seen and examined by me, agrees the above note by medical officer. Patient reported that he was still having some tenderness the left chest area where his monitor is. He also reported having some blood on his stool, a sample of the fecal occult is pending at this time. Hopefully at some point the monitored He's currently on Toradol he also had Percocet as well for pain Thank you very much, Jin Rodrigues
[2017-07-24] MEDS: Pantoprazole 40 mg EC Tab PO SCH (09:03)
[2017-07-24] MEDS ORDERED: Influenza Vaccine 60 mcg/0.5 mL SYR (4YR UP) IM ONE (10:00)
[2017-07-24] MEDS ORDERED: Pneumococcal 23-Valent Vaccine IM ONE (10:00)
[2017-07-24] MEDS: Oxycodone/Acetaminophen 5/325 mg Tab PO PRN ×2 (11:41→17:40)
[2017-07-25] MEDS: Oxycodone/Acetaminophen 5/325 mg Tab PO PRN ×3 (00:24→21:45)
[2017-07-25 06:30] LABS: BASO % 0.3 % (0.0-2.0); EOS # 0.1 K/uL (0.0-0.7); EOS % 1.9 % (0.0-4.0); HEMATOCRIT 40.7 % (35.0-51.0); LYMPH # 1.5 K/uL (1.0-4.3); MEAN CELL VOLUME 82.7 fL (80.0-94.0); MEAN CORPUSCULAR HEMOGLOBIN 27.1 pg (27.0-31.0); MEAN CORPUSCULAR HGB CONC 32.8 g/dL (33.0-37.0); MEAN PLATELET VOLUME 8.3 fL (7.2-11.7); MONO # 0.6 K/uL (0.0-0.8); MONO % 10.9 % (0.0-10.0); WHITE BLOOD COUNT 5.8 K/uL (4.8-10.8)
--- NOTE | 2017-07-25 06:51 | CP.PCM.PN ---
Subjective - Date & Time of Evaluation Date of Evaluation: 07/25/17 Time of Evaluation: 06:50 - Subjective Subjective: PGY1 Medicine Note for Dr. Rodrigues Patient seen and examined at bedside this morning. Patient reports that he is still experiencing chest pain that wrapsaround to his shoulder and back. The patient reports night sweats for the past two nights. He states that he has been in a lot of pain during the night and that he is having difficulty getting comfortable due to the pain. Patient states he is still dizzy when attempting to stand up and get walk to the bathroom. patient denies seeing any blood with his bowel movement last night or this morning. Denies feeling of fever or chills , d/c, n/v, sob or headaches. Objective - Vital Signs/Intake and Output Vital Signs (last 24 hours): Temp Pulse Resp BP Pulse Ox 97.4 F L 56 L 20 103/65 100 07/24/17 23:10 07/25/17 03:59 07/24/17 23:10 07/24/17 23:10 07/24/17 23:10 Intake and Output: 07/24/17 07/25/17 18:59 06:59 Intake Total 400 480 Output Total 2275 Balance 400 -1795 - Medications Medications: Current Medications Docusate Sodium (Colace) 100 mg PO BID [facility] Last Admin: 07/24/17 17:36 Dose: 100 mg Heparin Sodium (Porcine) (Heparin) 5,000 units SC Q8 [facility] Last Admin: 07/24/17 21:32 Dose: 5,000 units Ketorolac Tromethamine (Toradol) 30 mg IVP Q6 PRN PRN Reason: moderate pain Last Admin: 07/24/17 05:02 Dose: 30 mg Oxycodone/Acetaminophen (Percocet 5/325 Mg Tab) 1 tab PO Q6H PRN PRN Reason: Pain, severe (8-10) Stop: 07/27/17 10:16 Last Admin: 07/25/17 00:24 Dose: 1 tab Pantoprazole Sodium (Protonix Ec Tab) 40 mg PO DAILY [facility] Last Admin: 07/24/17 09:03 Dose: 40 mg - Labs Labs: 07/25/17 06:05 07/23/17 07:27 PT 12.1 SECONDS (9.7-12.2) 07/22/17 13:12 INR 1.1 07/22/17 13:12 APTT 36 SECONDS (21-34) H 07/22/17 13:12 - Constitutional Appears: Non-toxic, No Acute Distress - Head Exam Head Exam: ATRAUMATIC, NORMOCEPHALIC - Eye Exam Eye Exam: EOMI, Normal appearance - ENT Exam ENT Exam: Mucous Membranes Moist - Respiratory Exam Respiratory Exam: Clear to Ausculation Bilateral, NORMAL BREATHING PATTERN. absent: Accessory Muscle Use, Rales, Wheezes, Respiratory Distress - Cardiovascular Exam Cardiovascular Exam: REGULAR RHYTHM, +S1, +S2 Additional comments: reproducible chest pain on palpation on left side of chest. Patient states pain radiates to his left shoulder. - GI/Abdominal Exam GI & Abdominal Exam: Soft, Normal Bowel Sounds. absent: Distended, Firm, Guarding, Rigid, Tenderness - Extremities Exam Extremities Exam: absent: Calf Tenderness, Pedal Edema - Neurological Exam Neurological Exam: Alert, Awake, Oriented x3 - Psychiatric Exam Psychiatric exam: Normal Affect, Normal Mood - Skin Skin Exam: Dry, Normal Color, Warm Assessment and Plan - Assessment and Plan (Free Text) Plan: Vertigo CT head 07/22/17 - No acute intracranial abnormality. Mild chronic microvascular ischemic changes. 2.2 centimeter mucosal retention cyst and or polyp in the right maxillary sinus. Persistent deformity of the left zygomatic arch which may represent chronic fracture deformity. ECHO 07/22/17 - Left ventricle systolic function is normal. The Ejection Fraction is 65-70%. The left ventricular diastolic function is normal. No aortic regurgitation is present. The aortic root is mildly enlarged. Mitral regurgitation is trace. 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 Hx of loop recorder placed last year 07/[address] Kinsey. Pt never followed up as instructed. Toradol 30mg IV q6H PRN. Percocet 5/325mg PO q6H PRN STACI neg x3 TSH 2.57 Loop recorder management as per Dr. Higgins. * Dr. Kinsey consulted for Loop Recorder removal, per Dr. Higgins * Per Dr. Kinsey's note, Patient will have loop recorder removed tomorrow, , under local anaesthesia. Reported Blood in stool Started on Colace 100mg BID fecal occult - negative Hx of substance use urine drug screen - positive for cocaine and opioids. Patient denies opioids use (stated he used to use heroin 10months ago yesterday but stated today he has never abused opioids including heroin) - pt was given morphine in ED prior to UDS. Failure to thrive 20 pounds weight loss in 2 months per pt. Pt had similar complains in 2014 with negative workup. Hx of smoking and polysubstance use. Patient had colonoscopy 07/2015 that showed colonic polyps that were hyperplastic with tubular adenoma. [employer] consulted. CT chest 07/22 - Early paraseptal emphysematous changes, no focal pneumonia; 5 mm left apical nodule infectious/inflammatory versus neoplastic; no focal pneumonia; small thyroid nodules * As per Fleischner Society guidelines for follow-up and management of pulmonary nodules: For patients at low risk (minimal or absent history of smoking and of other known risk factors), recommend follow-up chest CT at 12 months; if unchanged, no further follow-up. For patient at high risk (history of smoking or of other known risk factors), recommend initial follow-up chest CT at 6-12 months, then at 18-24 months if no interval change. CT abd and pelvis 07/22 - Mild intra-extrahepatic biliary ductal dilatation, etiology unclear; no acute solid visceral or bowel abnormality; hepatic and renal cysts F/U HIV hepatitis panel - all negative Depression Psych Dr. Nieves consulted, help appreciated. Prophylactic measure SCD, HepSQ, Protonix. Case discussed with Dr. Lilia Yee Efren PGY1
[2017-07-25 07:39] LABS: CHLORIDE 100 mmol/L (98-107); SODIUM 136 mmol/L (132-148)
[2017-07-25 07:41] LABS: BILIRUBIN,TOTAL 0.4 mg/dL (0.2-1.3); GFR AFRICAN-AMERICAN > 60
[2017-07-25 07:42] LABS: ALB/GLOB RATIO 1.1 (1.0-2.1); ALKALINE PHOSPHATASE 67 U/L (38-126); ALT/SGPT 25 U/L (21-72); AST/SGOT 17 U/L (17-59); BLOOD UREA NITROGEN 13 mg/dL (9-20); CARBON DIOXIDE 28 mmol/L (22-30); GLUCOSE,RANDOM 81 mg/dL (75-110); TOTAL PROTEIN 7.2 g/dL (6.3-8.3)
[2017-07-25 07:43] LABS: CALCIUM 9.1 mg/dl (8.6-10.4)
[2017-07-25 07:47] LABS: POTASSIUM 5.2 mmol/L (3.6-5.2)
[2017-07-25] MEDS: Pantoprazole 40 mg EC Tab PO SCH (09:09)
--- NOTE | 2017-07-25 16:13 | VASCLAB ---
PROCEDURE: Lower Extremity Venous Duplex Exam. HISTORY: calf pain b/l, hx of DVT PRIORS: None. TECHNIQUE: Bilateral common femoral, femoral, popliteal and posterior tibial, peroneal and great saphenous veins were evaluated. Flow was assessed with color Doppler, compressibility, assessment of phasic flow and augmentation response. Report prepared by LISA Brown, RVT FINDINGS: RIGHT: 1. Common Femoral Vein: 1.1. Compressibility - Fully compressible: Thrombus - None : Flow - Phasic: Augmentation -Normal: Reflux - None. 2. Femoral Vein: 2.1. Compressibility - Fully compressible: Thrombus - None : Flow - Phasic: Augmentation -Normal: Reflux - None. 3. Popliteal Vein: 3.1. Compressibility - Fully compressible: Thrombus - None : Flow - Phasic: Augmentation -Normal: Reflux - None. 4. Posterior Tibial Vein: 4.1. Compressibility - Fully compressible: Thrombus - None: Flow - Phasic: Augmentation -Normal: Reflux - None. 5. Peroneal Vein: 5.1. Compressibility - Fully compressible: Thrombus - None: Flow - Phasic: Augmentation -Normal: Reflux - None. 6. Great Saphenous Vein: 6.1. Compressibility - Fully compressible: Thrombus - None: Flow - Phasic: Augmentation - Normal: Reflux - None. LEFT: 1. Common Femoral Vein: 1.1. Compressibility - Fully compressible: Thrombus - None: Flow - Phasic: Augmentation -Normal: Reflux - None. 2. Femoral Vein: 2.1. Compressibility - Fully compressible: Thrombus - None: Flow - Phasic: Augmentation -Normal: Reflux - None. 3. Popliteal Vein: 3.1. Compressibility - Fully compressible: Thrombus - None : Flow - Phasic: Augmentation -Normal: Reflux - None. 4. Posterior Tibial Vein: 4.1. Compressibility - Fully compressible: Thrombus - None: Flow - Phasic: Augmentation -Normal: Reflux - None. 5. Peroneal Vein: 5.1. Compressibility - Fully compressible: Thrombus - None: Flow - Phasic: Augmentation -Normal: Reflux - None. 6. Great Saphenous Vein: 6.1. Compressibility - Fully compressible: Thrombus - None: Flow - Phasic: Augmentation - Normal: Reflux - Severe. OTHER FINDINGS: Right: None significant. Left: Valvular incompetence of the left greater saphenous vein. IMPRESSION: Right: No evidence of deep or superficial vein thrombosis of the right lower extremity. Normal valve function noted of the right side. Left: No evidence of deep or superficial vein thrombosis of the left lower extremity.
--- NOTE | 2017-07-25 16:22 | CP.PCM.CON ---
Past Patient History - Infectious Disease Hx of Infectious Diseases: None - Tetanus Immunizations Tetanus Immunization: Unknown - Past Medical History & Family History Past Medical History?: Yes - Past Social History Smoking Status: Light Smoker < 10 Cigarettes Daily - CARDIAC Hx Cardia Arrhythmia: Yes Hx Hypercholesterolemia: Yes Hx Hypertension: Yes Hx Pacemaker: No - PULMONARY Hx Asthma: Yes Hx Pneumonia: Yes - NEUROLOGICAL Hx Seizures: No - HEENT Hx HEENT Problems: Yes Other/Comment: Blurred vision both eyes - RENAL Hx Chronic Kidney Disease: Yes Hx Kidney Stones: Yes - ENDOCRINE/METABOLIC Hx Endocrine Disorders: No - HEMATOLOGICAL/ONCOLOGICAL Hx Human Immunodeficiency Virus (HIV): No - INTEGUMENTARY Hx Dermatological Problems: No - MUSCULOSKELETAL/RHEUMATOLOGICAL Hx Falls: Yes - GASTROINTESTINAL Hx Gastrointestinal Disorders: Yes Other/Comment: Hx. of rectal bleeding - GENITOURINARY/GYNECOLOGICAL Hx Sexually Transmitted Disorders: No - PSYCHIATRIC Hx Anxiety: Yes Hx Depression: Yes Hx Schizophrenia: Yes Hx Substance Use: No - SURGICAL HISTORY Hx Surgeries: Yes Other/Comment: left shoulder surgery secondary to torn ligaments, head surgery 2x secondary to trauma 25 years ago - ANESTHESIA Hx Anesthesia: Yes Hx Anesthesia Reactions: No Hx Malignant Hyperthermia: No Has any member of the family had a problem w/ anesthesia?: No Meds Allergies/Adverse Reactions: Allergies Allergy/AdvReac Type Severity Reaction Status Date / Time No Known Allergies Allergy Verified 07/22/17 12:04 - Medications Medications: Current Medications Docusate Sodium (Colace) 100 mg PO BID [facility] Last Admin: 07/25/17 09:09 Dose: 100 mg Heparin Sodium (Porcine) (Heparin) 5,000 units SC Q8 [facility] Last Admin: 07/25/17 13:12 Dose: 5,000 units Ketorolac Tromethamine (Toradol) 30 mg IVP Q6 PRN PRN Reason: moderate pain Last Admin: 07/24/17 05:02 Dose: 30 mg Oxycodone/Acetaminophen (Percocet 5/325 Mg Tab) 1 tab PO Q6H PRN PRN Reason: Pain, severe (8-10) Stop: 07/27/17 10:16 Last Admin: 07/25/17 09:11 Dose: 1 tab Pantoprazole Sodium (Protonix Ec Tab) 40 mg PO DAILY [facility] Last Admin: 07/25/17 09:09 Dose: 40 mg Results - Vital Signs Recent Vital Signs: Last Vital Signs Temp 97.7 F 07/25/17 07:00 Pulse 63 07/25/17 07:05 Resp 20 07/25/17 07:00 BP 132/84 07/25/17 07:00 Pulse Ox 100 07/25/17 07:00 - Labs Result Diagrams: 07/25/17 06:05 07/25/17 06:05 Labs: Laboratory Results - last 24 hr 07/25/17 07/25/17 07/25/17 06:05 06:05 08:41 WBC 5.8 RBC 4.92 Hgb 13.4 Hct 40.7 MCV 82.7 MCH 27.1 MCHC 32.8 L RDW 15.0 H Plt Count 217 MPV 8.3 Neut % (Auto) 60.9 Lymph % (Auto) 26.0 Real % (Auto) 10.9 H Eos % (Auto) 1.9 Baso % (Auto) 0.3 Neut # 3.5 Lymph # 1.5 Real # 0.6 Eos # 0.1 Baso # 0.0 Sodium 136 Potassium 5.2 Chloride 100 Carbon Dioxide 28 Anion Gap 13 BUN 13 Creatinine 1.1 Est GFR ( Amer) > 60 Est GFR (Non-Af Amer) > 60 Random Glucose 81 Calcium 9.1 Total Bilirubin 0.4 AST 17 D ALT 25 Alkaline Phosphatase 67 Total Protein 7.2 Albumin 3.7 Globulin 3.5 Albumin/Globulin Ratio 1.1 Stool Occult Blood Negative Assessment & Plan - Assessment and Plan (Free Text) Assessment: Patient has had ILR for about 1 year and no arrhythmias detected. Patient reports discomfort at ILR site. Will schedule removal tomorrow under local anesthesia.
[2017-07-26] MEDS: Oxycodone/Acetaminophen 5/325 mg Tab PO PRN ×3 (05:55→18:58)
[2017-07-26 06:45] LABS: BASO % 0.5 % (0.0-2.0); EOS # 0.1 K/uL (0.0-0.7); EOS % 0.8 % (0.0-4.0); LYMPH # 1.5 K/uL (1.0-4.3); LYMPH % 16.8 % (20.0-40.0); MEAN CELL VOLUME 82.4 fL (80.0-94.0); MEAN CORPUSCULAR HEMOGLOBIN 27.5 pg (27.0-31.0); MEAN CORPUSCULAR HGB CONC 33.4 g/dL (33.0-37.0); MEAN PLATELET VOLUME 8.1 fL (7.2-11.7); MONO # 0.9 K/uL (0.0-0.8); MONO % 10.1 % (0.0-10.0); NRBC % 0.1 % (0.0-2.0); RED CELL DISTRIBUTION WIDTH 14.9 % (11.5-14.5)
[2017-07-26 07:04] LABS: CHLORIDE 98 mmol/L (98-107); POTASSIUM 4.4 mmol/L (3.6-5.2); SODIUM 137 mmol/L (132-148)
[2017-07-26 07:06] LABS: AST/SGOT 22 U/L (17-59); BILIRUBIN,TOTAL 0.3 mg/dL (0.2-1.3); CARBON DIOXIDE 29 mmol/L (22-30); GFR AFRICAN-AMERICAN > 60
[2017-07-26 07:07] LABS: ALKALINE PHOSPHATASE 71 U/L (38-126); ALT/SGPT 21 U/L (21-72); BLOOD UREA NITROGEN 15 mg/dL (9-20); CALCIUM 9.2 mg/dl (8.6-10.4); GLUCOSE,RANDOM 84 mg/dL (75-110); TOTAL PROTEIN 7.8 g/dL (6.3-8.3)
[2017-07-26] MEDS: Pantoprazole 40 mg EC Tab PO SCH (09:19)
--- NOTE | 2017-07-26 13:07 | CP.PCM.PN ---
<Joselito Schwartz - Last Filed: 07/26/17 12:54> Subjective - Date & Time of Evaluation Date of Evaluation: 07/26/17 Time of Evaluation: 12:54 - Subjective Subjective: PGY1 Medicine note for Dr. Rodrigues Patient seen and examined at bedside this morning. Patient is still complaining of chest and left shoulder pain. Patient is scheduled to have his loop recorder removed later today with Dr. Kinsey. Patient is still complaining of dizziness. Denies f/c, n/v, d/c, sob or headaches. Objective - Vital Signs/Intake and Output Vital Signs (last 24 hours): Temp Pulse Resp BP Pulse Ox 97.9 F 66 20 134/93 H 100 07/26/17 07:05 07/26/17 07:05 07/26/17 07:05 07/26/17 07:05 07/26/17 07:05 Intake and Output: 07/26/17 07/26/17 06:59 18:59 Intake Total 420 Output Total 1750 Balance -1330 - Medications Medications: Current Medications Docusate Sodium (Colace) 100 mg PO BID [facility] Last Admin: 07/26/17 09:19 Dose: 100 mg Ketorolac Tromethamine (Toradol) 30 mg IVP Q6 PRN PRN Reason: moderate pain Last Admin: 07/24/17 05:02 Dose: 30 mg Oxycodone/Acetaminophen (Percocet 5/325 Mg Tab) 1 tab PO Q6H PRN PRN Reason: Pain, severe (8-10) Stop: 07/27/17 10:16 Last Admin: 07/26/17 12:51 Dose: 1 tab Pantoprazole Sodium (Protonix Ec Tab) 40 mg PO DAILY [facility] Last Admin: 07/26/17 09:19 Dose: 40 mg - Labs Labs: 07/26/17 06:37 07/26/17 06:37 PT 12.1 SECONDS (9.7-12.2) 07/22/17 13:12 INR 1.1 07/22/17 13:12 APTT 36 SECONDS (21-34) H 07/22/17 13:12 - Constitutional Appears: Non-toxic, No Acute Distress - Head Exam Head Exam: ATRAUMATIC, NORMOCEPHALIC - Eye Exam Eye Exam: EOMI, Normal appearance, PERRL - ENT Exam ENT Exam: Mucous Membranes Moist - Neck Exam Neck Exam: Full ROM. absent: Lymphadenopathy, Tenderness - Respiratory Exam Respiratory Exam: Clear to Ausculation Bilateral, NORMAL BREATHING PATTERN. absent: Accessory Muscle Use, Rales, Wheezes, Respiratory Distress - Cardiovascular Exam Cardiovascular Exam: REGULAR RHYTHM, +S1, +S2 - GI/Abdominal Exam GI & Abdominal Exam: Soft, Normal Bowel Sounds. absent: Distended, Firm, Guarding, Rigid, Tenderness - Extremities Exam Extremities Exam: Normal Inspection. absent: Calf Tenderness, Pedal Edema - Neurological Exam Neurological Exam: Alert, Awake, Oriented x3 - Psychiatric Exam Psychiatric exam: Normal Affect, Normal Mood - Skin Skin Exam: Dry, Normal Color, Warm Assessment and Plan - Assessment and Plan (Free Text) Plan: Vertigo CT head 07/22/17 - No acute intracranial abnormality. Mild chronic microvascular ischemic changes. 2.2 centimeter mucosal retention cyst and or polyp in the right maxillary sinus. Persistent deformity of the left zygomatic arch which may represent chronic fracture deformity. ECHO 07/22/17 - Left ventricle systolic function is normal. The Ejection Fraction is 65-70%. The left ventricular diastolic function is normal. No aortic regurgitation is present. The aortic root is mildly enlarged. Mitral regurgitation is trace. 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 Hx of loop recorder placed last year 07/[address] Kinsey. Pt never followed up as instructed. Toradol 30mg IV q6H PRN. Percocet 5/325mg PO q6H PRN STACI neg x3 TSH 2.57 Loop recorder management as per Dr. Higgins. * Dr. Kinsey consulted for Loop Recorder removal, per Dr. Higgins * Per Dr. Kinsey's note, Patient to have loop recorder removed today under local anaesthesia. Reported Blood in stool Started on Colace 100mg BID fecal occult - negative Hx of substance use urine drug screen - positive for cocaine and opioids. Patient denies opioids use (stated he used to use heroin 10months ago yesterday but stated today he has never abused opioids including heroin) - pt was given morphine in ED prior to UDS. Failure to thrive 20 pounds weight loss in 2 months per pt. Pt had similar complains in 2014 with negative workup. Hx of smoking and polysubstance use. Patient had colonoscopy 07/2015 that showed colonic polyps that were hyperplastic with tubular adenoma. [employer] Non[employer] Author consulted. CT chest 07/22 - Early paraseptal emphysematous changes, no focal pneumonia; 5 mm left apical nodule infectious/inflammatory versus neoplastic; no focal pneumonia; small thyroid nodules * As per Fleischner Society guidelines for follow-up and management of pulmonary nodules: For patients at low risk (minimal or absent history of smoking and of other known risk factors), recommend follow-up chest CT at 12 months; if unchanged, no further follow-up. For patient at high risk (history of smoking or of other known risk factors), recommend initial follow-up chest CT at 6-12 months, then at 18-24 months if no interval change. CT abd and pelvis 07/22 - Mild intra-extrahepatic biliary ductal dilatation, etiology unclear; no acute solid visceral or bowel abnormality; hepatic and renal cysts F/U HIV hepatitis panel - all negative Depression Psych Dr. Nieves consulted, help appreciated. Prophylactic measure SCD, HepSQ, Protonix. Case discussed with Dr. Lilia Yee Efren PGY1 <Jin Rodrigues H - Last Filed: 07/26/17 13:14> Objective - Vital Signs/Intake and Output Vital Signs (last 24 hours): Temp Pulse Resp BP Pulse Ox 97.9 F 66 20 134/93 H 100 07/26/17 07:05 07/26/17 07:05 07/26/17 07:05 07/26/17 07:05 07/26/17 07:05 Intake and Output: 07/26/17 07/26/17 06:59 18:59 Intake Total 420 Output Total 1750 Balance -1330 - Medications Medications: Current Medications Docusate Sodium (Colace) 100 mg PO BID [facility] Last Admin: 07/26/17 09:19 Dose: 100 mg Ketorolac Tromethamine (Toradol) 30 mg IVP Q6 PRN PRN Reason: moderate pain Last Admin: 07/24/17 05:02 Dose: 30 mg Meclizine HCl (Antivert) 12.5 mg PO BID [facility] Oxycodone/Acetaminophen (Percocet 5/325 Mg Tab) 1 tab PO Q6H PRN PRN Reason: Pain, severe (8-10) Stop: 07/27/17 10:16 Last Admin: 07/26/17 12:51 Dose: 1 tab Pantoprazole Sodium (Protonix Ec Tab) 40 mg PO DAILY [facility] Last Admin: 07/26/17 09:19 Dose: 40 mg - Labs Labs: 07/26/17 06:37 07/26/17 06:37 PT 12.1 SECONDS (9.7-12.2) 07/22/17 13:12 INR 1.1 07/22/17 13:12 APTT 36 SECONDS (21-34) H 07/22/17 13:12 Attending/Attestation - Attestation I have personally seen and examined this patient.: Yes I have fully participated in the care of the patient.: Yes I have reviewed all pertinent clinical information, including history, physical exam and plan: Yes Notes (Text): 07/26/17 13:14 Medical attending: Patient was seen and examined by me, agrees the above note by medical geneticist. When we saw him in the morning the patient was not under any acute distress, he reported that he did okay last night he was still having some tenderness over the left anterior chest area in particular where his loop monitor his. The patient is scheduled to have removal of this device sometime later on during the day Thank you very much Jin Rodrigues
--- NOTE | 2017-07-26 15:00 | PCM.SURG1 ---
Surgeon's Initial Post Op Note - Surgeon's Notes Surgeon: Ry Jordan MD [place]: None Type of Anesthesia: Local Anesthesia Administered By: Ry Jordan Pre-Operative Diagnosis: syncope Operative Findings: Successful ILR removal Post-Operative Diagnosis: Syncope Operation Performed: ILR removal Specimen/Specimens Removed: None Estimated Blood Loss: EBL {In ML}: 5 Blood Products Given: N/A Drains Used: No Drains Post-Op Condition: Good Date of Surgery/Procedure: 07/26/17 Time of Surgery/Procedure: 15:00
[2017-07-27 01:14] VITALS: O2SAT 98
[2017-07-27] MEDS: Oxycodone/Acetaminophen 5/325 mg Tab PO PRN (05:56)
[2017-07-27 06:17] LABS: BASO % 0.3 % (0.0-2.0); EOS # 0.1 K/uL (0.0-0.7); EOS % 1.7 % (0.0-4.0); HEMATOCRIT 39.9 % (35.0-51.0); LYMPH # 1.5 K/uL (1.0-4.3); LYMPH % 21.7 % (20.0-40.0); MEAN CELL VOLUME 82.2 fL (80.0-94.0); MEAN CORPUSCULAR HEMOGLOBIN 27.3 pg (27.0-31.0); MEAN CORPUSCULAR HGB CONC 33.3 g/dL (33.0-37.0); MEAN PLATELET VOLUME 8.2 fL (7.2-11.7); MONO # 0.8 K/uL (0.0-0.8); MONO % 11.1 % (0.0-10.0); NRBC % 0.1 % (0.0-2.0); WHITE BLOOD COUNT 6.9 K/uL (4.8-10.8)
[2017-07-27 07:41] LABS: CHLORIDE 98 mmol/L (98-107); SODIUM 134 mmol/L (132-148)
[2017-07-27 07:42] LABS: POTASSIUM 4.6 mmol/L (3.6-5.2)
[2017-07-27 07:44] LABS: ALB/GLOB RATIO 1.2 (1.0-2.1); ALKALINE PHOSPHATASE 76 U/L (38-126); ALT/SGPT 25 U/L (21-72); AST/SGOT 22 U/L (17-59); BILIRUBIN,TOTAL 0.4 mg/dL (0.2-1.3); BLOOD UREA NITROGEN 15 mg/dL (9-20); CALCIUM 9.3 mg/dl (8.6-10.4); CARBON DIOXIDE 29 mmol/L (22-30); GFR AFRICAN-AMERICAN > 60; GLUCOSE,RANDOM 88 mg/dL (75-110); TOTAL PROTEIN 7.1 g/dL (6.3-8.3)
[2017-07-27 08:41] VITALS: BP 118/71; PULSE 75; TEMP 97.5
[2017-07-27] MEDS: Pantoprazole 40 mg EC Tab PO SCH (09:05)
--- NOTE | 2017-07-27 17:18 | CP.PCM.DIS ---
Provider - Provider Date of Admission: 07/23/17 16:03 Attending physician: Jin Rodrigues DO Consults: Cardiology - Dr. Higgins Cardiology - Dr. Kinsey Time Spent in preparation of Discharge (in minutes): 30 Hospital Course - Lab Results Lab Results: Most Recent Lab Values WBC 6.9 K/uL (4.8-10.8) 07/27/17 06:09 RBC 4.86 Mil/uL (4.40-5.90) 07/27/17 06:09 Hgb 13.3 g/dL (12.0-18.0) 07/27/17 06:09 Hct 39.9 % (35.0-51.0) 07/27/17 06:09 MCV 82.2 fL (80.0-94.0) 07/27/17 06:09 MCH 27.3 pg (27.0-31.0) 07/27/17 06:09 MCHC 33.3 g/dL (33.0-37.0) 07/27/17 06:09 RDW 15.0 % (11.5-14.5) H 07/27/17 06:09 Plt Count 233 K/uL (130-400) 07/27/17 06:09 MPV 8.2 fL (7.2-11.7) 07/27/17 06:09 Neut % (Auto) 65.2 % (50.0-75.0) 07/27/17 06:09 Lymph % (Auto) 21.7 % (20.0-40.0) 07/27/17 06:09 [place] % (Auto) 11.1 % (0.0-10.0) H 07/27/17 06:09 Eos % (Auto) 1.7 % (0.0-4.0) 07/27/17 06:09 Baso % (Auto) 0.3 % (0.0-2.0) 07/27/17 06:09 Neut # 4.5 K/uL (1.8-7.0) 07/27/17 06:09 Lymph # 1.5 K/uL (1.0-4.3) 07/27/17 06:09 [place] # 0.8 K/uL (0.0-0.8) 07/27/17 06:09 Eos # 0.1 K/uL (0.0-0.7) 07/27/17 06:09 Baso # 0.0 K/uL (0.0-0.2) 07/27/17 06:09 PT 12.1 SECONDS (9.7-12.2) 07/22/17 13:12 INR 1.1 07/22/17 13:12 APTT 36 SECONDS (21-34) H 07/22/17 13:12 Sodium 134 mmol/L (132-148) 07/27/17 06:09 Potassium 4.6 mmol/L (3.6-5.2) 07/27/17 06:09 Chloride 98 mmol/L (98-107) 07/27/17 06:09 Carbon Dioxide 29 mmol/L (22-30) 07/27/17 06:09 Anion Gap 12 (10-20) 07/27/17 06:09 BUN 15 mg/dL (9-20) 07/27/17 06:09 Creatinine 1.0 mg/dL (0.8-1.5) 07/27/17 06:09 Est GFR ( Amer) > 60 07/27/17 06:09 Est GFR (Non-Af Amer) > 60 07/27/17 06:09 Random Glucose 88 mg/dL (75-110) 07/27/17 06:09 Hemoglobin A1c 5.7 % (4.2-6.5) 07/23/17 07:27 Calcium 9.3 mg/dl (8.6-10.4) 07/27/17 06:09 Phosphorus 3.0 mg/dL (2.5-4.5) 07/22/17 13:12 Magnesium 2.0 mg/dL (1.6-2.3) 07/22/17 13:12 Total Bilirubin 0.4 mg/dL (0.2-1.3) 07/27/17 06:09 AST 22 U/L (17-59) 07/27/17 06:09 ALT 25 U/L (21-72) 07/27/17 06:09 Alkaline Phosphatase 76 U/L (38-126) 07/27/17 06:09 Total Creatine Kinase 96 U/L (55-170) 07/23/17 14:00 CK-MB (Mass) 0.55 ng/mL (0.0-3.38) 07/23/17 14:00 Troponin I < 0.0120 ng/mL (0.00-0.120) 07/22/17 13:12 Troponin I, Quant < 0.0120 ng/mL (0.00-0.120) 07/23/17 14:00 NT-Pro-B Natriuret Pep 36.2 pg/mL (0-900) 07/23/17 07:27 Total Protein 7.1 g/dL (6.3-8.3) 07/27/17 06:09 Albumin 3.9 g/dL (3.5-5.0) 07/27/17 06:09 Globulin 3.2 gm/dL (2.2-3.9) 07/27/17 06:09 Albumin/Globulin Ratio 1.2 (1.0-2.1) 07/27/17 06:09 Triglycerides 53 mg/dL (0-149) 07/23/17 07:27 Cholesterol 165 mg/dL (0-199) 07/23/17 07:27 LDL Cholesterol Direct 113 mg/dL (0-129) 07/23/17 07:27 HDL Cholesterol 58 mg/dL (30-70) 07/23/17 07:27 TSH 3rd Generation 2.57 mIU/L (0.46-4.68) 07/23/17 07:27 Stool Occult Blood Negative (NEGATIVE) 07/25/17 08:41 Urine Opiates Screen Positive (NEGATIVE) 07/22/17 16:29 Urine Methadone Screen Negative (NEGATIVE) 07/22/17 16:29 Ur Barbiturates Screen Negative (NEGATIVE) 07/22/17 16:29 Ur Phencyclidine Scrn Negative (NEGATIVE) 07/22/17 16:29 Ur Amphetamines Screen Negative (NEGATIVE) 07/22/17 16:29 U Benzodiazepines Scrn Negative (NEGATIVE) 07/22/17 16:29 U Oth Cocaine Metabols Positive (NEGATIVE) 07/22/17 16:29 U Cannabinoids Screen Negative (NEGATIVE) 07/22/17 16:29 Hepatitis A IgM Ab Negative (NEGATIVE) 07/23/17 14:00 Hep Bs Antigen Negative (NEGATIVE) 07/23/17 14:00 Hep B Core IgM Ab Negative (NEGATIVE) 07/23/17 14:00 Hepatitis C Antibody Negative (NEGATIVE) 07/23/17 14:00 - Hospital Course Hospital Course: As per admission documentation, 62M PMHx vertigo, heart arrhythmia, DVT's (no longer on warfarin), depression, schizophrenia, colonic polyps presented after falling at home. Pt said he woke up this morning and wanted to get some juice in the kitchen. He felt room spinning and fell to the ground. Pt was confused for 10 seconds and denied LOC. Pt got up and called his friend who brought him to the hospital. Pt said he had problem with vertigo in the past but has been symptoms free for the past 6 months. Pt also complains of left sided chest pain for 3 days. Pt has history of loop recorder implanted on 07/[address] Kinsey but never followed up. Pt said his chest pinching pain originated from the loop implant site, radiating to his left arm and left shoulder. Pt admits to being depressed due to father recently hospitalized due to lung CA, and started using 3 days ago. When asked, pt said his chest pain started before his cocaine use. Pt also admits to 20 lbs unintended weight loss in the past 2 months as well, though pt complains of similar symptoms 2 years ago with negative workup. Currently admits to nausea but denied fever, chills, vomiting, SOB, constipation, diarrhea, dysuria, abdominal pain. Hospital Course Patient admitted for chest pain r/o ACS and vertigo. While in the hospital, it was discovered that the patient had a loop recorder placed approximately one year ago. Discharge Exam - Head Exam Head Exam: ATRAUMATIC, NORMOCEPHALIC Discharge Plan - Follow Up Plan Condition: FAIR Disposition: HOME/ ROUTINE Instructions: Vertigo (DC) Additional Instructions: Patient is to be discharged home per Dr. Rodrigues. Patient is to follow up with [facility] located in the basement of [facility] within one week. Patient was given no medications. If the patient experiences any new or worsening symptoms, please return to the hospital. Resume home Meclizine as needed. Referrals: [facility] at [facility] [Outside]
--- NOTE | 2017-07-29 13:26 | CARD ---
APPROVED REPORT EKG Measurement Heart [id number] ID [id number] <Conclusion> Sinus bradycardia Moderate voltage criteria for LVH, may be normal variant Early repolarization Borderline ECG
== END 2017-07-27 14:00 | disposition home or self-care (01) | DRG 315 ==
LOC: C.ER 11:48 → C.9E 14:46 → C.6T 16:47 → OBSVTOIN 07-23 16:03
PROVIDERS: ADMIT Hospitalist; ATTEND Hospitalist
PROC: 0JPT32Z Removal of Monitoring Device from Trunk Subcutaneous Tissue and Fascia, Percutaneous Approach (ICD-10-PCS; principal; 2017-07-26 14:00)
DX: T82.847A Pain due to cardiac prosthetic devices, implants and grafts, initial encounter (principal); R42 Dizziness and giddiness; F14.90 Cocaine use, unspecified, uncomplicated; S09.90XA Unspecified injury of head, initial encounter; W19.XXXA Unspecified fall, initial encounter; I12.9 Hypertensive chronic kidney disease with stage 1 through stage 4 chronic kidney disease, or unspecified chronic kidney disease; F31.62 Bipolar disorder, current episode mixed, moderate; F17.210 Nicotine dependence, cigarettes, uncomplicated; E78.00 Pure hypercholesterolemia, unspecified; J45.909 Unspecified asthma, uncomplicated; K21.9 Gastro-esophageal reflux disease without esophagitis; N18.9 Chronic kidney disease, unspecified; Y92.009 Unspecified place in unspecified non-institutional (private) residence as the place of occurrence of the external cause; Z95.818 Presence of other cardiac implants and grafts; Z80.1 Family history of malignant neoplasm of trachea, bronchus and lung; Z86.010 Personal history of colon polyps; Z86.718 Personal history of other venous thrombosis and embolism; Z87.01 Personal history of pneumonia (recurrent); Z87.442 Personal history of urinary calculi

== ENCOUNTER 2017-07-27 14:34 | Emergency (ER) | payer MEDICAID, OTHER ==
[2017-07-27 14:34] VITALS: BMI 20.5
[2017-07-27 14:47] VITALS: BP 135/83; PULSE 81; TEMP 97.8; O2SAT 99
--- NOTE | 2017-07-27 15:06 | C.PDOC ---
History Of Present Illness Patient c/o feeling light headed when he sat up from his wheelchair, while waiting for his ride to bring him home from hospital (was discharged from [facility] today). Patient is s/p loop recorder removal during this admission, states his left chest is sore. He denies chest pain, SOB, cough, fever, abdominal pain, nausea/vomiting, headache Time Seen by Provider: 07/27/17 14:55 Chief Complaint (Nursing): Dizziness/Lightheaded Past Medical History Vital Signs: Last Vital Signs Temp 97.8 F 07/27/17 14:45 Pulse 81 07/27/17 14:45 Resp 20 07/27/17 15:31 BP 135/83 07/27/17 14:45 Pulse Ox 99 07/27/17 15:10 - Medical History PMH: Anxiety, Asthma, Cardia Arrhythmia, Depression, HTN, Hypercholesterolemia, Kidney Stones, Pneumonia, Chronic Kidney Disease, Schizophrenia Denies: Diabetes, Hepatitis, HIV, Seizures, Sexually Transmitted Disease Surgical History: Denies: Pacemaker - [facility] Procedures DESTRUCTION OF ASCENDING COLON, ENDO (07/09/15) ENDOSC POLYPECTOMY OF LG INTEST (05/27/15) EXCISION OF STOMACH, ENDO, DIAGN (07/09/15) INDIVID PSYCHOTHERAP NEC (04/28/15) INSERT OF MONITOR DEV INTO CHEST SUBCU/FASCIA, OPEN APPROACH (07/17/16) MEASURE OF ARTERIAL PRESSURE, PERIPHERAL, WHEAT WASHER APPROACH (07/17/16) MEASUREMENT OF CARDIAC RHYTHM, EXTERNAL APPROACH (07/17/16) PSYCHIAT DRUG THERAP NEC (05/19/15) SUPPOR VERBAL PSYCHOTHER (04/28/15) Family History: States: Unknown Family Hx - Social History Hx Tobacco Use: No Hx Alcohol Use: No Hx Substance Use: No - Immunization History Hx Tetanus Toxoid Vaccination: Yes Hx Influenza Vaccination: Yes Hx Pneumococcal Vaccination: Yes Physical Exam - Physical Exam Appears: Well, Non-toxic, No Acute Distress Head: Normacephalic Eye(s): bilateral: Normal Inspection Oral Mucosa: Moist Chest: Symmetrical, No Tenderness Cardiovascular: Rhythm Regular Respiratory: Normal Breath Sounds, No Rales, No Rhonchi, No Wheezing Neurological/Psych: Oriented x3, Other (bizarre affect) Gait: Steady ED Course And Treatment ECG: Interpreted By Me, Viewed By Me (NSR 71 bpm, normal axis, LVH, no acute ST/ T wave changes) ECG Interpretation: Normal O2 Sat by Pulse Oximetry: 99 (RA) Pulse Ox Interpretation: Normal Progress Note: EKG ordered and reviewed. Explained to patient that he was just discharged and that it is unlikely we will readmit him for same complaint he was just discharged for. He states his ride is here now, and he is going to leave and go to a different hospital. He left ED prior to accucheck being done. Patient well appearing, in no pain/distress, AAOx3, ambulating normally in ED. Disposition Counseled Patient/Family Regarding: Diagnosis, Need For Followup - Disposition Referrals: [facility] at [facility] [Outside] Disposition: ELOPEMENT - ER ONLY Disposition Time: 15:05 Condition: STABLE Forms: [facility] (Slovenian), General Discharge Instructions Print Language: CANADIAN - Clinical Impression Clinical Impression: Dizziness
[2017-07-27 15:31] VITALS: RESP 20
--- NOTE | 2017-07-29 12:52 | CARD ---
APPROVED REPORT EKG Measurement Heart [id number] <Conclusion> Normal sinus rhythm Minimal voltage criteria for LVH, may be normal variant Borderline ECG
== END 2017-07-27 15:30 | disposition left against medical advice (07) ==
LOC: C.ER 14:34
DX: R42 Dizziness and giddiness (principal); E78.00 Pure hypercholesterolemia, unspecified; I12.9 Hypertensive chronic kidney disease with stage 1 through stage 4 chronic kidney disease, or unspecified chronic kidney disease; N18.9 Chronic kidney disease, unspecified

== ENCOUNTER 2017-07-28 14:51 | Emergency (ER) | payer MEDICAID ==
[2017-07-28 14:52] VITALS: BMI 20.5
--- NOTE | 2017-07-28 15:14 | C.PDOC ---
History Of Present Illness 62 y/o M c PMHx HTN, HLD, CKD, schizophrenia, vertigo p/w lightheadedness, vertigo, and pain. Patient was discharged from [facility] [place] for a syncopal episode. He went to [facility] yesterday directly from this hospital where he was admitted for approximately 1 week for the same symptoms. The patient has been to this hospital multiple times for vertigo associated with vomiting and syncopal episodes. He has undergone CT Head, carotid doppler, MRI Brain, all of which have found no significant findings. He also complains of a L sided chest pain which radiates to the L shoulder for 6 days. During his admission, he had negative cardiac enzymes x 3, negative CT chest. He also had a loop recorder ( placed 1 year ago, never followed up and placed initially due to his longstanding vertigo/lightheadedness) removed. It was interrogated and found no significant findings. The patient reports no new symptoms. Denies fever, cough, leg swelling. Of note, patient was also found to have abdominal tenderness on exam, which he states has also been present x 6 days and also had CT abdomen, which was unremarkable. Time Seen by Provider: 07/28/17 14:58 Chief Complaint (Nursing): Chest Pain Past Medical History Vital Signs: Last Vital Signs Temp Pulse 96 H 07/28/17 15:28 Resp 12 07/28/17 15:28 BP 100/66 07/28/17 15:28 Pulse Ox 100 07/28/17 15:28 - Medical History PMH: Anxiety, Asthma, Cardia Arrhythmia, Depression, HTN, Hypercholesterolemia, Kidney Stones, Pneumonia, Chronic Kidney Disease, Schizophrenia Denies: Diabetes, Hepatitis, HIV, Seizures, Sexually Transmitted Disease Surgical History: Denies: Pacemaker - [facility] Procedures DESTRUCTION OF ASCENDING COLON, ENDO (07/09/15) ENDOSC POLYPECTOMY OF LG INTEST (05/27/15) EXCISION OF STOMACH, ENDO, DIAGN (07/09/15) INDIVID PSYCHOTHERAP NEC (04/28/15) INSERT OF MONITOR DEV INTO CHEST SUBCU/FASCIA, OPEN APPROACH (07/17/16) MEASURE OF ARTERIAL PRESSURE, PERIPHERAL, SUPERVISOR FEED HOUSE APPROACH (07/17/16) MEASUREMENT OF CARDIAC RHYTHM, EXTERNAL APPROACH (07/17/16) PSYCHIAT DRUG THERAP NEC (05/19/15) SUPPOR VERBAL PSYCHOTHER (04/28/15) Family History: States: Unknown Family Hx - Social History Hx Tobacco Use: No Hx Alcohol Use: No Hx Substance Use: No - Immunization History Hx Tetanus Toxoid Vaccination: Yes Hx Influenza Vaccination: Yes Hx Pneumococcal Vaccination: Yes Review Of Systems Except As Marked, All Systems Reviewed And Found Negative. Constitutional: Negative for: Fever Respiratory: Negative for: Shortness of Breath Physical Exam - Physical Exam Appears: No Acute Distress Skin: No Diaphoretic Head: Normacephalic Eye(s): bilateral: EOMI Oral Mucosa: Moist Neck: Supple Chest: Tenderness (L chest) Cardiovascular: Rhythm Regular Respiratory: Normal Breath Sounds Gastrointestinal/Abdominal: Tenderness (lower abdomen) Extremity: Tenderness (L arm) Pulses: Left Radial: Normal, Right Radial: Normal Neurological/Psych: Oriented x3, Normal Speech, Normal Motor, Normal Sensation Medical Decision Making Medical Decision Making: EKG sinus rhythm, [address] elevations. Discussed the patient's evaluation at length with patient. I informed him that this battery of tests that he has had done has not found any significant emergent findings and that further inpatient hospitalization is not indicated. I informed him that further follow up with primary care is required as the etiology of his symptoms has not been fully elucidated from his hospitalizations. Patient was agreeable with discharge. Disposition Counseled Patient/Family Regarding: Studies Performed, Need For Followup - Disposition Disposition: HOME/ ROUTINE Disposition Time: 15:52 Condition: STABLE Instructions: Vertigo (ED) Forms: [employer] (Spanish) - Clinical Impression Clinical Impression: Vertigo, Chest discomfort
[2017-07-28 15:31] VITALS: BP 100/66; PULSE 96; RESP 12; O2SAT 100
== END 2017-07-28 16:21 | disposition home or self-care (01) ==
LOC: C.ER 14:51
DX: R42 Dizziness and giddiness (principal); R07.89 Other chest pain

== ENCOUNTER 2018-06-11 15:22 | Inpatient (IN) | payer MEDICAID, OTHER ==
[2018-06-11 15:30] VITALS: BMI 18.6
[2018-06-11 16:31] LABS: BASO % 0.3 % (0.0-2.0); EOS # 0.1 K/uL (0.0-0.7); EOS % 1.6 % (0.0-4.0); HEMOGLOBIN 14.6 g/dL (12.0-18.0); LYMPH # 1.4 K/uL (1.0-4.3); LYMPH % 24.1 % (20.0-40.0); MEAN CELL VOLUME 80.3 fL (80.0-94.0); MEAN CORPUSCULAR HEMOGLOBIN 26.7 pg (27.0-31.0); MEAN CORPUSCULAR HGB CONC 33.2 g/dL (33.0-37.0); MEAN PLATELET VOLUME 8.1 fL (7.2-11.7); MONO # 0.5 K/uL (0.0-0.8); MONO % 8.7 % (0.0-10.0); NEUT # 3.9 K/uL (1.8-7.0); NEUT % 65.3 % (50.0-75.0); NRBC % 0.1 % (0.0-2.0); RBC 5.46 Mil/uL (4.40-5.90); WHITE BLOOD COUNT 5.9 K/uL (4.8-10.8)
[2018-06-11 17:15] LABS: BLOOD UREA NITROGEN 20 mg/dL (9-20); GFR NON-AFRICAN AMERICAN > 60
[2018-06-11 17:16] LABS: ALB/GLOB RATIO 1.2 (1.0-2.1); ALBUMIN 4.7 g/dL (3.5-5.0); ALT/SGPT 16 U/L (21-72); AST/SGOT 22 U/L (17-59); CALCIUM 10.1 mg/dl (8.6-10.4)
[2018-06-11 17:26] LABS: BARBITURATES, UR NEGATIVE (NEGATIVE); BENZODIAZEPINES, UR NEGATIVE (NEGATIVE); OPIATES, UR NEGATIVE (NEGATIVE); PHENCYCLIDINE, UR NEGATIVE (NEGATIVE)
--- NOTE | 2018-06-11 17:46 | RAD ---
Date of service: 06/11/2018 PROCEDURE: Radiographs of the Lumbar Spine. HISTORY: midline low back pain COMPARISON: None available. FINDINGS: BONES: Scoliosis convex to the left. Multilevel degenerative changes including anterior osteophyte formation. Facet hypertrophy. No acute displaced fracture identified. DISC SPACES: Intervertebral disc space narrowing. Vacuum disc phenomenon at L5-S1. OTHER FINDINGS: None. IMPRESSION: Scoliosis. Multilevel degenerative changes.
--- NOTE | 2018-06-11 17:46 | C.PDOC ---
History Of Present Illness 63 y/o male c/o 3 day hx of feeling depressed, hearing voices telling him to end it all, and has suicidal ideation with no plan. pt not taking any psychiatric medications at this time, stopped on his own. c/o lower back pain, worse with movement, with no trauma, numbness, tingling, saddle anesthesia or bladder/bowel dysfunction. Time Seen by Provider: 06/11/18 16:05 Chief Complaint (Nursing): Psychiatric Evaluation History Per: Patient History/Exam Limitations: no limitations Onset/Duration Of Symptoms: Days (3) Current Symptoms Are (Timing): Still Present Suicide/Self Injury Attempted (Context): None Modifying Factor(s): None Associated Symptoms: Depression, Suicidal Thoughts. denies: Suicidal Plan Recent travel outside of the [place]: No Past Medical History Reviewed: Historical Data, Nursing Documentation, Vital Signs Vital Signs: Last Vital Signs Temp 98.1 F 06/11/18 15:30 Pulse 108 H 06/11/18 15:30 Resp 20 06/11/18 15:30 BP 107/75 06/11/18 15:30 Pulse Ox 97 06/11/18 18:57 - Medical History PMH: Anxiety, Asthma, Cardia Arrhythmia, Depression, HTN, Hypercholesterolemia, Kidney Stones, Pneumonia, Chronic Kidney Disease, Schizophrenia Denies: Diabetes, Hepatitis, HIV, Seizures, Sexually Transmitted Disease Surgical History: Denies: Pacemaker - [facility] Procedures DESTRUCTION OF ASCENDING COLON, ENDO (07/09/15) ENDOSC POLYPECTOMY OF LG INTEST (05/27/15) EXCISION OF STOMACH, ENDO, DIAGN (07/09/15) INDIV PSYCHOTHERAPY FOR SUBSTANCE ABUSE, COGNITIV BEHAVIORAL (08/05/17) INDIV PSYCHOTHERAPY FOR SUBSTANCE ABUSE, PSYCHOEDUCATION (08/05/17) INDIVID PSYCHOTHERAP NEC (04/28/15) INDIVIDUAL PSYCHOTHERAPY, COGNITIVE-BEHAVIORAL (08/05/17) INDIVIDUAL PSYCHOTHERAPY, SUPPORTIVE (08/05/17) INSERT OF MONITOR DEV INTO CHEST SUBCU/FASCIA, OPEN APPROACH (07/17/16) MEASURE OF ARTERIAL PRESSURE, PERIPHERAL, CORE DRILLER HELPER APPROACH (07/17/16) MEASUREMENT OF CARDIAC RHYTHM, EXTERNAL APPROACH (07/17/16) PSYCHIAT DRUG THERAP NEC (05/19/15) REMOVE OF MONITOR DEV FROM TRUNK SUBCU/FASCIA, PERC APPROACH (07/23/17) SUPPOR VERBAL PSYCHOTHER (04/28/15) Family History: States: Unknown Family Hx - Social History Hx Tobacco Use: No Hx Alcohol Use: No Hx Substance Use: Yes (FORMER) - Immunization History Hx Tetanus Toxoid Vaccination: Yes Hx Influenza Vaccination: Yes Hx Pneumococcal Vaccination: Yes Review Of Systems Constitutional: Negative for: Fever, Chills Cardiovascular: Negative for: Chest Pain, Palpitations Respiratory: Negative for: Cough, Shortness of Breath Musculoskeletal: Positive for: Back Pain Skin: Negative for: Rash Neurological: Negative for: Weakness, Numbness Psych: Positive for: Depression, Suicidal ideation Physical Exam - Physical Exam Appears: Non-toxic, No Acute Distress Skin: Warm, Dry Head: Atraumatic, Normacephalic Eye(s): bilateral: Normal Inspection Oral Mucosa: Moist Neck: No Midline Cervical Tenderness Respiratory: No Decreased Breath Sounds, No Wheezing Gastrointestinal/Abdominal: Bowel Sounds, Soft, No Tenderness Back: Vertebral Tenderness (lumbar area), Paraspinal Tenderness (lumbar) Extremity: Normal ROM, No Pedal Edema, No Calf Tenderness Pulses: Left Dorsalis Pedis: Normal, Right Dorsalis Pedis: Normal Neurological/Psych: Oriented x3, Normal Speech, Normal Cognition, Normal Motor, Normal Sensation ED Course And Treatment - Laboratory Results Result Diagrams: 06/11/18 16:26 06/11/18 16:26 O2 Sat by Pulse Oximetry: 97 Medical Decision Making Medical Decision Making: will get med clearance for crisis and ls spine xray. 1745 pt is medically cleated for psychiatric evaluation, await dispo from crisis 1858 pt with hematuria-= recommend repeat ua with referral to urology if persists. Disposition Discussed With Dr.: Ileana Nieves Doctor Will See Patient In The: Hospital - Disposition Disposition: HOSPITALIZED Disposition Time: 18:57 Condition: GOOD Forms: [facility] (Korean) - Clinical Impression Clinical Impression: Major depressive disorder, Hematuria
[2018-06-11 17:47] LABS: SQUAMOUS EPITHIAL 6 /hpf (0-5); URINE BACTERIA RARE (<OCC); URINE BILIRUBIN NEGATIVE (NEGATIVE); URINE BLOOD 2+ (NEGATIVE); URINE CLARITY Hazy (Clear); URINE GLUCOSE (UA) NORMAL (Normal); URINE LEUKOCYTE ESTERASE TRACE Leu/uL (Negative); URINE PROTEIN NEGATIVE (NEGATIVE)
[2018-06-11 17:49] LABS: URINE COLOR YELLOW (YELLOW)
[2018-06-11 19:10] VITALS: O2SAT 98
--- NOTE | 2018-06-11 22:44 | PCM.BM ---
<Henrry Yu - Last Filed: 06/11/18 22:42> Treatment Plan Problems - Problems identified on initial assessmt Depression Date Initiated: 06/11/18 Time Initiated: 22:42 Assessment reference: NA Status: Active Treatment assets and liabiliti Patient Assests: cooperative, self-reliant, ADL independent, negotiates basic needs, cognitively intact Patient Liabilities: substance abuse (Hx of Cocaine & Heroin use), medical problems (HTN, Asthma), legal issue (Hx of Incarceration 10yrs Manslaughter) - Milieu Protocol Maintain good personal hygiene: daily Encourage regular showers, daily Remind patient to perform daily oral care, every shift Assist patient to perform ADL's Conduct patient checks and document Observation sheet: Q15 minutes (For safety) Maintain personal safety: every shift Educate patient to report safety concerns to staff, every shift Monitor environment for contraband/sharps Medication safety: Monitor for expected outcome, potential side effects: every shift, Assess barriers to learning: every shift, Assess readiness for medication education: every shift <Ileana Nieves - Last Filed: 06/16/18 11:01> - Diagnosis (1) Major depressive disorder Status: Acute Interventions: 06/16/18 11:01 * Assess/adjust medications daily and /or as needed * See patient on an individual basis 7x/week to assess symptoms of depression * Monitor for side effects & effectiveness of medications * <Alyssa Connor - Last Filed: 06/16/18 14:12> Family Contact Family involvement: Family/SO is involved Family contact: Patient declines to allow family contact at present - Goals for Treatment Patient goals for treatment: [place] Discharge/Continuing Care - Education Needs Education Needs: Patient Medication, Patient Coping Skills, Patient Placement options, Patient Community resources - Discharge Discharge Criteria: Tolerates medication w/o severe side effects, No longer exhibiting s/s of withdrawal, Reduction of target symptoms Discharge to:: Home, With Family - Treatment Team Participation Discussed with Family/SO: No Was Patient/Family/SO present at Treatment Team Meeting: Yes
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
[2018-06-12] MEDS ORDERED: Divalproex 250 mg DR Tab PO SCH (18:45)
--- NOTE | 2018-06-14 14:44 | PCM.PYCHPN ---
Psychiatric Progress Note - Psychiatric Progress Note Patient seen today, length of contact: 15 min Patient Chief Complaint: "I have decrease appetite" Medication Change: Yes Medical Record Reviewed: Yes Mental Status Examination - Cognitive Function Orientation: Person, Place, Situation, Time Memory: Intact Attention: WNL Concentration: Poor Association: WNL Fund of Knowledge: Poor - Mood Mood: Depressed, Anxious, Other (pt was crying during interview ) - Affect Affect: Constricted, Depressed - Speech Speech: Soft - Formal Thought Process Formal Thought Process: Hallucinations, Paranoia - Suicidal Ideation Suicidal Ideation: No - Homicidal Ideation Homicidal Ideation: No Goal/Treatment Plan - Goal/Treatment Plan Need for Continued Stay: Severe depression anxiety, Severe functional impairment Progress Toward Problem(s) and Goals/Treatment Plan: Major Depressive Disorder recurrent severe with psychotic features Hydroxyzine 25MG for Anxiety Seroquel 50mg As need medications All risks, benefits and alternatives of meds discussed and pt agreed and understood attend groups and activities Individual therapy daily Psycho education and support daily Refer to outpatient program Teach healthy lifestyle methods, i.e Diet, exercise, meditation Smoking cessation and patch if needed
--- NOTE | 2018-06-14 14:44 | PCM.PYCHPN ---
Psychiatric Progress Note - Psychiatric Progress Note Patient seen today, length of contact: 15 min Patient Chief Complaint: "I am still feeling depressed.' Problems Identified/Issues Discussed: Patient seen and evaluated, chart reviewed and discussed with the nurse. Pt reports depressed mood, and reports feelings of hopelessness and helplessness. He remained isolated and withdrawn, and confined to his room. He denies any AVH or any paranoia. He still reports back pain. Patient is compliant with medications and denies any side effects. Symptoms are improving but pt needs more time to stabilize. Support and psychoeducation given. Medication Change: Yes Medical Record Reviewed: Yes Mental Status Examination - Cognitive Function Orientation: Person, Place, Situation, Time Memory: Intact Attention: WNL Concentration: Poor Association: WNL Fund of Knowledge: Poor - Mood Mood: Depressed, Anxious, Other (pt was crying during interview ) - Affect Affect: Constricted, Depressed - Speech Speech: Soft - Formal Thought Process Formal Thought Process: Hallucinations, Paranoia - Suicidal Ideation Suicidal Ideation: No - Homicidal Ideation Homicidal Ideation: No Goal/Treatment Plan - Goal/Treatment Plan Need for Continued Stay: Severe depression anxiety, Severe functional impairment Progress Toward Problem(s) and Goals/Treatment Plan: Major Depressive Disorder recurrent severe with psychotic features Hydroxyzine 25MG for Anxiety Seroquel 100 mg Carabamazapine 100 mg PO BID Remeron 15 mg PO QHS As need medications All risks, benefits and alternatives of meds discussed and pt agreed and understood attend groups and activities Individual therapy daily Psycho education and support daily Refer to outpatient program Teach healthy lifestyle methods, i.e Diet, exercise, meditation Smoking cessation and patch if needed
--- NOTE | 2018-06-16 11:01 | PCM.PYCHPN ---
Psychiatric Progress Note - Psychiatric Progress Note Patient seen today, length of contact: 15 min Patient Chief Complaint: "I am feeling dizzy.' Problems Identified/Issues Discussed: The pt is seen, chart reviewed, case discussed with staff. The pt is compliant with medications. Pt reports dizziness. Administer meclizine. Symptoms are improving but needs more time to stabilize. Pt attends groups and activities. Support given, psycho-education provided. After care discussed. Medication Change: Yes Medical Record Reviewed: Yes Mental Status Examination - Cognitive Function Orientation: Person, Place, Situation, Time Memory: Intact Attention: WNL Concentration: Poor Association: WNL Fund of Knowledge: Poor - Mood Mood: Depressed, Anxious, Other (pt was crying during interview ) - Affect Affect: Constricted, Depressed - Speech Speech: Soft - Formal Thought Process Formal Thought Process: Hallucinations, Paranoia - Suicidal Ideation Suicidal Ideation: No - Homicidal Ideation Homicidal Ideation: No Goal/Treatment Plan - Goal/Treatment Plan Need for Continued Stay: Severe depression anxiety, Severe functional impairment Progress Toward Problem(s) and Goals/Treatment Plan: Major Depressive Disorder recurrent severe with psychotic features Hydroxyzine 25MG for Anxiety Seroquel 100 mg Carabamazapine 100 mg PO BID Remeron 15 mg PO QHS As need medications All risks, benefits and alternatives of meds discussed and pt agreed and understood attend groups and activities Individual therapy daily Psycho education and support daily Refer to outpatient program Teach healthy lifestyle methods, i.e Diet, exercise, meditation Smoking cessation and patch if needed
--- NOTE | 2018-06-17 10:46 | PCM.PYCHPN ---
Psychiatric Progress Note - Psychiatric Progress Note Patient seen today, length of contact: 15 min Patient Chief Complaint: "I have decrease appetite" Problems Identified/Issues Discussed: The pt is seen, chart reviewed, case discussed with staff. The pt is compliant with medications. Pt reports dizziness. Administer meclizine. Symptoms are improving but needs more time to stabilize. Pt attends groups and activities. Support given, psycho-education provided. After care discussed. Medication Change: Yes Medical Record Reviewed: Yes Mental Status Examination - Cognitive Function Orientation: Person, Place, Situation, Time - Mood Mood: Depressed, Anxious, Other (pt was crying during interview ) - Affect Affect: Constricted, Depressed - Speech Speech: Soft - Formal Thought Process Formal Thought Process: Hallucinations, Paranoia - Suicidal Ideation Suicidal Ideation: No - Homicidal Ideation Homicidal Ideation: No Goal/Treatment Plan - Goal/Treatment Plan Need for Continued Stay: Severe depression anxiety, Severe functional impairment Progress Toward Problem(s) and Goals/Treatment Plan: Major Depressive Disorder recurrent severe with psychotic features Hydroxyzine 25MG for Anxiety DC Seroquel 100mg Remeron 45 mg PO QHS Meclizine for vertigo As need medications All risks, benefits and alternatives of meds discussed and pt agreed and understood attend groups and activities Individual therapy daily Psycho education and support daily Refer to outpatient program Teach healthy lifestyle methods, i.e Diet, exercise, meditation Smoking cessation and patch if needed
[2018-06-18 06:05] VITALS: RESP 20
--- NOTE | 2018-06-18 17:25 | CP.PCM.CON ---
<Michelle Bauer - Last Filed: 06/18/18 17:38> History of Present Illness - History of Present Illness History of Present Illness: Consult History and Physical Exam Note for Dr. Parker This is a 63 year old male with past medical history of depression, anxiety, schizophrenia, and suicidal ideation. Was admitted to psych unit for suicidal ideation on 06/11. Patient also has a history of vertigo ( with extensive work-up performed in 2017 at [facility]), asthma, HLD , complains of dizziness that started 3 days ago. Patient states that he has had bouts of vertigo in the past and has been diagnosed with vertigo 3-4 years ago. Patient states the episodes occur spontaneously and they last for about a minute. Patient describes his dizziness as sometimes it feels like I am spinning and other times it feels like the room is spinning. Patient states he has blurry vision associated with his dizziness. Patient says he feels better when he sits down or lays down and that the dizziness is exacerbated when he tries to stand and/or walk. Patient says that he has not seen a doctor in the past year, and that he does not take medications. Patient otherwise denies nausea , vomiting, shortness of breath, chest pain, palpitations, weakness in lower extremities and/or upper extremities. Patient also denies abdominal pain, constipation, diarrhea, dysuria, fevers and/or chills. Of note, patient also says that he is stressed out that he is in the hospital because his father has lung cancer and is being treated in [place]. PMD: Patient denies PSxH: shoulder surgery (patient does not recall details), Social: Smokes 2 cigarettes per day, denies cravings while in hospital. ETOH: denies. Drug abuse: from previous record, history of cocaine abuse Family History: Father: lung cancer (currently hospitalized in [place]), Mother: heart attack x2 (alive) Allergies: Patient denies Occupation: currently unemployed Living: lives with a friend in an apartment Review of Systems - Review of Systems All systems: reviewed and no additional remarkable complaints except - Constitutional Constitutional: As Per HPI - EENT Eyes: As Per HPI Nose/Mouth/Throat: As Per HPI - Cardiovascular Cardiovascular: As Per HPI - Respiratory Respiratory: As Per HPI - Gastrointestinal Gastrointestinal: As Per HPI - Genitourinary Genitourinary: As Per HPI - Musculoskeletal Musculoskeletal: As Per HPI - Integumentary Integumentary: As Per HPI - Neurological Neurological: As Per HPI - Psychiatric Psychiatric: As Per HPI - Endocrine Endocrine: As Per HPI - Hematologic/Lymphatic Hematologic: As Per HPI Past Patient History - Infectious Disease Hx of Infectious Diseases: None - Tetanus Immunizations Tetanus Immunization: Unknown - Past Medical History & Family History Past Medical History?: Yes - Past Social History Smoking Status: Light Smoker < 10 Cigarettes Daily Home Situation {Lives}: Friends - CARDIAC Hx Cardia Arrhythmia: Yes Hx Hypercholesterolemia: Yes Hx Hypertension: Yes Hx Pacemaker: No - PULMONARY Hx Asthma: Yes Hx Pneumonia: Yes - NEUROLOGICAL Hx Seizures: No - HEENT Hx HEENT Problems: Yes Other/Comment: Blurred vision both eyes - RENAL Hx Chronic Kidney Disease: Yes Hx Kidney Stones: Yes - ENDOCRINE/METABOLIC Hx Endocrine Disorders: No - HEMATOLOGICAL/ONCOLOGICAL Hx Human Immunodeficiency Virus (HIV): No - INTEGUMENTARY Hx Dermatological Problems: No - MUSCULOSKELETAL/RHEUMATOLOGICAL Hx Falls: Yes - GASTROINTESTINAL Hx Gastrointestinal Disorders: Yes Other/Comment: Hx. of rectal bleeding - GENITOURINARY/GYNECOLOGICAL Hx Sexually Transmitted Disorders: No - PSYCHIATRIC Hx Substance Use: Yes (about one year ago last use) - SURGICAL HISTORY Hx Surgeries: Yes Other/Comment: left shoulder surgery secondary to torn ligaments, head surgery 2x secondary to trauma 25 years ago - ANESTHESIA Hx Anesthesia: Yes Hx Anesthesia Reactions: No Hx Malignant Hyperthermia: No Meds Home Medications: Home Medication List Medication Instructions Recorded Confirmed Type Mirtazapine [Remeron] 45 mg PO HS #30 tab 06/20/18 Rx Allergies/Adverse Reactions: Allergies Allergy/AdvReac Type Severity Reaction Status Date / Time No Known Allergies Allergy Verified 06/11/18 15:30 - Medications Medications: Current Medications Hydroxyzine HCl (Atarax) 25 mg PO Q6 PRN PRN Reason: Anxiety Last Admin: 06/18/18 00:55 Dose: 25 mg Ibuprofen (Motrin Tab) 600 mg PO Q6 PRN PRN Reason: Pain, moderate (4-7) Last Admin: 06/11/18 22:10 Dose: 600 mg Meclizine HCl (Antivert) 25 mg PO BID PRN PRN Reason: Dizziness Last Admin: 06/18/18 09:37 Dose: 25 mg Mirtazapine (Remeron) 45 mg PO HS VENESSA Last Admin: 06/18/18 00:55 Dose: 45 mg Tramadol HCl (Ultram) 50 mg PO Q8 PRN PRN Reason: Pain, severe (8-10) Last Admin: 06/13/18 10:12 Dose: 50 mg Physical Exam - Constitutional Appears: Non-toxic, No Acute Distress Additional comments: Patient appears depressed and is sitting down on bed. - Head Exam Head Exam: ATRAUMATIC, NORMAL INSPECTION, NORMOCEPHALIC - Eye Exam Eye Exam: EOMI, Normal appearance, PERRL - ENT Exam ENT Exam: Mucous Membranes Moist, Normal Exam - Neck Exam Neck exam: Positive for: Full Rom, Normal Inspection - Respiratory Exam Respiratory Exam: Clear to Auscultation Bilateral, NORMAL BREATHING PATTERN. absent: Decreased Breath Sounds, Wheezes, Stridor - Cardiovascular Exam Cardiovascular Exam: +S1, +S2. absent: Tachycardia, Rubs, Systolic Murmur - GI/Abdominal Exam GI & Abdominal Exam: absent: Tenderness - Back Exam Back exam: FULL ROM. absent: paraspinal tenderness - Neurological Exam Neurological exam: Alert, Oriented x3 Additional comments: unable to assess gait as patient is unable to stand without assistance and is unable to walk without assistance due to fear that he will fall. Nose to finger test is performed but delayed. Muscle strength 5/5 in upper and lower extremities, gross sensation is in tact. - Psychiatric Exam Psychiatric exam: Depressed - Skin Skin Exam: Dry, Intact, Normal Color, Warm Results - Vital Signs Recent Vital Signs: Last Vital Signs Temp 98.1 F 06/18/18 06:04 Pulse 76 06/18/18 15:37 Resp 20 06/18/18 06:04 BP 107/64 06/18/18 15:37 Pulse Ox 98 06/11/18 19:09 - Labs Result Diagrams: 06/18/18 17:19 06/11/18 16:26 Assessment & Plan - Assessment and Plan (Free Text) Assessment: 63 year old male with past medical history of depression, anxiety, and suicidal ideation. Also has history of vertigo (extensive work-up in 2017 at [facility]), asthma, hypercholesterolemia. Patient admitted to psych unit for suicidal ideation on 06/11. Patient complains of episodes of dizziness that have worsened over the past 3 days. Dizziness likely secondary to vertigo - Extensive work-up performed in 2017 Per previous reports: * loop recorder placed approximately [address] Kinsey under local anesthesia on 07/26/17 * CT head 07/22/17 - No acute intracranial abnormality. Mild chronic microvascular ischemic changes. 2.2 centimeter mucosal retention cyst and or polyp in the right maxillary sinus. Persistent deformity of the left zygomatic arch which may represent chronic fracture deformity. * ECHO 07/22/17 - Left ventricle systolic function is normal. The Ejection Fraction is 65-70%. The left ventricular diastolic function is normal. No aortic regurgitation is present. The aortic root is mildly enlarged. Mitral regurgitation is trace. * CT chest 07/1617 - Early paraseptal emphysematous changes, no focal pneumonia ; 5 mm left apical nodule infectious/inflammatory versus neoplastic; no focal pneumonia; small thyroid nodules. As per Fleischner Society guidelines for follow-up and management of pulmonary nodules: For patients at low risk ( minimal or absent history of smoking and of other known risk factors), recommend follow-up chest CT at 12 months; if unchanged, no further follow-up. For patient at high risk (history of smoking or of other known risk factors), recommend initial follow-up chest CT at 6-12 months, then at 18-24 months if no interval change. * CT abd and pelvis 07/22/17 - Mild intra-extrahepatic biliary ductal dilatation , etiology unclear; no acute solid visceral or bowel abnormality; hepatic and renal cysts * Carotid Doppler 07/22/17 - normal findings * LE duplex 07/25/17 - normal findings * (Please see discharge summary from 07/27/17 for details) - EKG: pending - Stopped hydroxyzine HCl 25mg PO Q6 - PT was consulted for evaluation and treatment, will follow recommendations - Orthostatic BP: could not be adequately obtained due to patient being unable to stand - Monitor vitals - Repeat CBC, CMP, Magnesium, Phos: pending Suicidal Ideation - management per the psychiatry team Depression - management per the psychiatry team Patient seen and case discussed with Dr. Elena Bauer PGY1 <Romario Parker - Last Filed: 06/20/18 19:09> Results - Vital Signs Recent Vital Signs: Last Vital Signs Temp 97.6 F 06/20/18 06:43 Pulse 68 06/20/18 06:43 Resp 20 06/20/18 06:43 BP 96/62 L 06/20/18 06:43 Pulse Ox 98 06/11/18 19:09 - Labs Result Diagrams: 06/18/18 17:19 06/18/18 17:19 Attending/Attestation - Attestation I have personally seen and examined this patient.: Yes I have fully participated in the care of the patient.: Yes I have reviewed all pertinent clinical information: Yes Notes (Text): Patient was seen and examined,Detail history taken. His old records reviewed by me. Patient had extensive work up for his dizziness including MRI brain,EEG, corotid doppler,tilt table test... Patient state that he is suffering from vertigo last 3 years. The patient also says that he is stressed out because his father has lung cancer. As per RN patient is ambulating to dinning room holding on to wall.No focal wekaness noted. We will follow basic labs and PT evaluation I agree with the resident's documentation
[2018-06-18 17:27] LABS: BASO % 0.3 % (0.0-2.0); EOS # 0.3 K/uL (0.0-0.7); EOS % 4.3 % (0.0-4.0); HEMOGLOBIN 13.7 g/dL (12.0-18.0); LYMPH % 33.3 % (20.0-40.0); MEAN CELL VOLUME 81.6 fL (80.0-94.0); MEAN CORPUSCULAR HEMOGLOBIN 27.7 pg (27.0-31.0); MEAN CORPUSCULAR HGB CONC 33.9 g/dL (33.0-37.0); MEAN PLATELET VOLUME 8.2 fL (7.2-11.7); MONO # 0.6 K/uL (0.0-0.8); MONO % 10.4 % (0.0-10.0); NEUT # 3.1 K/uL (1.8-7.0); NEUT % 51.7 % (50.0-75.0); NRBC % 0.1 % (0.0-2.0); RBC 4.95 Mil/uL (4.40-5.90); RED CELL DISTRIBUTION WIDTH 14.8 % (11.5-14.5); WHITE BLOOD COUNT 5.9 K/uL (4.8-10.8)
[2018-06-18 17:55] LABS: ALB/GLOB RATIO 1.3 (1.0-2.1); ALBUMIN 4.3 g/dL (3.5-5.0); ALT/SGPT 38 U/L (21-72); AST/SGOT 30 U/L (17-59); BLOOD UREA NITROGEN 19 mg/dL (9-20); CALCIUM 9.7 mg/dl (8.6-10.4); GFR NON-AFRICAN AMERICAN > 60
--- NOTE | 2018-06-19 07:22 | CP.PCM.PN ---
<Michelle Bauer - Last Filed: 06/19/18 14:30> Subjective - Date & Time of Evaluation Date of Evaluation: 06/19/18 Time of Evaluation: 14:20 - Subjective Subjective: Medicine consult progress note for Dr. Parker Patient seen and evaluated at bedside. Patient admits to no new complaints today. Per nurse, the patient was not participating in group sessions and requested food trays to be brought to bed. Patient was later viewed on monitor, per nurse, and was able to walk to the bathroom without assistance and with more stable gait than on exam. Objective - Vital Signs/Intake and Output Vital Signs (last 24 hours): Temp Pulse Resp BP Pulse Ox 98.8 F 81 20 115/72 98 06/19/18 06:24 06/19/18 06:24 06/19/18 06:24 06/19/18 06:24 06/11/18 19:09 - Medications Medications: Current Medications Ibuprofen (Motrin Tab) 600 mg PO Q6 PRN PRN Reason: Pain, moderate (4-7) Last Admin: 06/11/18 22:10 Dose: 600 mg Meclizine HCl (Antivert) 25 mg PO BID PRN PRN Reason: Dizziness Last Admin: 06/18/18 21:16 Dose: 25 mg Mirtazapine (Remeron) 45 mg PO HS VENESSA Last Admin: 06/18/18 21:16 Dose: 45 mg Tramadol HCl (Ultram) 50 mg PO Q8 PRN PRN Reason: Pain, severe (8-10) Last Admin: 06/13/18 10:12 Dose: 50 mg - Labs Labs: 06/18/18 17:19 06/18/18 17:19 - Additional Findings Additional findings: - Constitutional Appears: Non-toxic, No Acute Distress Additional comments: Patient appears depressed and is laying down in bed. - Head Exam Head Exam: ATRAUMATIC, NORMAL INSPECTION, NORMOCEPHALIC - Eye Exam Eye Exam: EOMI, Normal appearance, PERRL - Neck Exam Neck exam: Positive for: Full Rom, Normal Inspection - Cardiovascular Exam Cardiovascular Exam: RRR Additional comments: EKG: normal sinus rhythm at 63bpm - Neurological Exam Neurological exam: Alert, Oriented x3 Additional comments: unable to assess gait as patient is unable to stand without assistance and is unable to walk without assistance due to fear that he will fall. Of note, per nurse: patient was observed on video monitor to be walking to the bathroom without assistance and with stable gait. - Psychiatric Exam Psychiatric exam: Depressed - Skin Skin Exam: Dry, Intact, Normal Color, Warm Assessment and Plan - Assessment and Plan (Free Text) Assessment: 63 year old male with past medical history of depression, anxiety, and suicidal ideation. Also has history of vertigo (extensive work-up in 2017 at [facility]), asthma, hypercholesterolemia. Patient admitted to psych unit for suicidal ideation on 06/11. Patient complains of episodes of dizziness that have worsened over the past 3 days. Dizziness likely secondary to vertigo - Extensive work-up performed in 2017 Per previous reports: * loop recorder placed approximately [address] Kinsey under local anesthesia on 07/26/17 * CT head 07/22/17 - No acute intracranial abnormality. Mild chronic microvascular ischemic changes. 2.2 centimeter mucosal retention cyst and or polyp in the right maxillary sinus. Persistent deformity of the left zygomatic arch which may represent chronic fracture deformity. * ECHO 07/22/17 - Left ventricle systolic function is normal. The Ejection Fraction is 65-70%. The left ventricular diastolic function is normal. No aortic regurgitation is present. The aortic root is mildly enlarged. Mitral regurgitation is trace. * CT chest 07/1617 - Early paraseptal emphysematous changes, no focal pneumonia ; 5 mm left apical nodule infectious/inflammatory versus neoplastic; no focal pneumonia; small thyroid nodules. As per Fleischner Society guidelines for follow-up and management of pulmonary nodules: For patients at low risk ( minimal or absent history of smoking and of other known risk factors), recommend follow-up chest CT at 12 months; if unchanged, no further follow-up. For patient at high risk (history of smoking or of other known risk factors), recommend initial follow-up chest CT at 6-12 months, then at 18-24 months if no interval change. * CT abd and pelvis 07/22/17 - Mild intra-extrahepatic biliary ductal dilatation , etiology unclear; no acute solid visceral or bowel abnormality; hepatic and renal cysts * Carotid Doppler 07/22/17 - normal findings * LE duplex 07/25/17 - normal findings * (Please see discharge summary from 07/27/17 for details) - EKG: Normal sinus rhythm at 63bpm - Stopped hydroxyzine HCl 25mg PO Q6 - PT was consulted for evaluation and treatment * Recommendations appreciated. - Orthostatic BP: could not be adequately obtained due to patient being unable to stand - Monitor vitals - Repeat CBC, CMP, Magnesium, Phos: pending Suicidal Ideation - Management per the psychiatry team Depression - Management per the psychiatry team Patient is medically optimized for discharge from medicine team standpoint. Patient seen and case discussed with Dr. Parker. Thank you for allowing us to participate in the care of this patient. Michelle Bauer PGY1 <Romario Parker - Last Filed: 06/20/18 19:14> Objective - Vital Signs/Intake and Output Vital Signs (last 24 hours): Temp Pulse Resp BP Pulse Ox 97.6 F 68 20 96/62 L 98 06/20/18 06:43 06/20/18 06:43 06/20/18 06:43 06/20/18 06:43 06/11/18 19:09 - Labs Labs: 06/18/18 17:19 06/18/18 17:19 Attending/Attestation - Attestation I have personally seen and examined this patient.: Yes I have fully participated in the care of the patient.: Yes I have reviewed all pertinent clinical information, including history, physical exam and plan: Yes Notes (Text): Seen and examined.patient was lying comfortable.No complain. Spoke to RN. Patient was ambulating to bathroom without difficulty We will sign off. Assessment and the plan discussed with the patient and I agree with the documentation
[2018-06-20 06:43] VITALS: BP 96/62; PULSE 68; TEMP 97.6
--- NOTE | 2018-06-20 10:10 | PCM.PYCHPN ---
Psychiatric Progress Note - Psychiatric Progress Note Patient seen today, length of contact: 15 min Patient Chief Complaint: "I have decrease appetite" Problems Identified/Issues Discussed: The pt is seen, chart reviewed, case discussed with staff. The pt is compliant with medications. Pt reports dizziness. Administer meclizine. Symptoms are improving but needs more time to stabilize. Pt attends groups and activities. Support given, psycho-education provided. After care discussed. Medication Change: Yes Medical Record Reviewed: Yes Mental Status Examination - Cognitive Function Orientation: Person, Place, Situation, Time Memory: Intact Attention: WNL Concentration: WNL Association: [facility] Fund of Knowledge: [facility] Decription of patient's judgement and insights: good, fair - Mood Mood: Neutral - Affect Affect: Constricted - Speech Speech: Soft - Formal Thought Process Formal Thought Process: No Impairment Psychotic Thoughts and Behaviors: denies any AVH - Suicidal Ideation Suicidal Ideation: No - Homicidal Ideation Homicidal Ideation: No Goal/Treatment Plan - Goal/Treatment Plan Need for Continued Stay: Severe depression anxiety, Severe functional impairment Progress Toward Problem(s) and Goals/Treatment Plan: Major Depressive Disorder recurrent severe with psychotic features Hydroxyzine 25MG for Anxiety DC Seroquel 100mg Remeron 45 mg PO QHS Meclizine for vertigo As need medications All risks, benefits and alternatives of meds discussed and pt agreed and understood attend groups and activities Individual therapy daily Psycho education and support daily Refer to outpatient program Teach healthy lifestyle methods, i.e Diet, exercise, meditation Smoking cessation and patch if needed
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
--- NOTE | 2018-06-20 10:11 | PCM.PYCHPN ---
Psychiatric Progress Note - Psychiatric Progress Note Patient seen today, length of contact: 15 min Patient Chief Complaint: "I have decrease appetite" Problems Identified/Issues Discussed: The pt is seen, chart reviewed, case discussed with staff. The pt is compliant with medications. Pt reports dizziness. Administer meclizine. Symptoms are improving but needs more time to stabilize. Pt attends groups and activities. Support given, psycho-education provided. After care discussed. Medication Change: Yes Medical Record Reviewed: Yes Mental Status Examination - Cognitive Function Orientation: Person, Place, Situation, Time Memory: Intact Attention: WNL Concentration: WNL Association: [facility] Fund of Knowledge: [facility] Decription of patient's judgement and insights: good, fair - Mood Mood: Neutral - Affect Affect: Constricted - Speech Speech: Soft - Formal Thought Process Formal Thought Process: No Impairment Psychotic Thoughts and Behaviors: denies any AVH - Suicidal Ideation Suicidal Ideation: No - Homicidal Ideation Homicidal Ideation: No Goal/Treatment Plan - Goal/Treatment Plan Need for Continued Stay: Severe depression anxiety, Severe functional impairment Progress Toward Problem(s) and Goals/Treatment Plan: Major Depressive Disorder recurrent severe with psychotic features Hydroxyzine 25MG for Anxiety DC Seroquel 100mg Remeron 45 mg PO QHS Meclizine for vertigo As need medications All risks, benefits and alternatives of meds discussed and pt agreed and understood attend groups and activities Individual therapy daily Psycho education and support daily Refer to outpatient program Teach healthy lifestyle methods, i.e Diet, exercise, meditation Smoking cessation and patch if needed
--- NOTE | 2018-06-22 08:24 | CARD ---
APPROVED REPORT Date of service: 06/18/2018 EKG Measurement Heart [id number] <Conclusion> Normal sinus rhythm ST elevation, probably due to early repolarization Borderline ECG
== END 2018-06-20 10:45 | disposition home or self-care (01) | DRG 430 ==
LOC: C.ER 15:22 → C.5E 18:55
PROVIDERS: ADMIT Psychiatry & Neurology Psychiatry; ATTEND Psychiatry & Neurology Psychiatry
PROC: GZHZZZZ Group Psychotherapy (ICD-10-PCS; principal; 2018-06-11)
PROC: GZ58ZZZ Individual Psychotherapy, Cognitive-Behavioral (ICD-10-PCS; 2018-06-11)
PROC: GZ56ZZZ Individual Psychotherapy, Supportive (ICD-10-PCS; 2018-06-11)
DX: F33.3 Major depressive disorder, recurrent, severe with psychotic symptoms (principal); N18.9 Chronic kidney disease, unspecified; R45.851 Suicidal ideations; E78.00 Pure hypercholesterolemia, unspecified; F17.210 Nicotine dependence, cigarettes, uncomplicated; F41.9 Anxiety disorder, unspecified; I34.0 Nonrheumatic mitral (valve) insufficiency; I12.9 Hypertensive chronic kidney disease with stage 1 through stage 4 chronic kidney disease, or unspecified chronic kidney disease; J45.909 Unspecified asthma, uncomplicated; Z91.5 Personal history of self-harm

== ENCOUNTER 2018-06-21 15:13 | Emergency (ER) | payer MEDICAID, OTHER ==
[2018-06-21 15:14] VITALS: BMI 18.6
--- NOTE | 2018-06-21 16:55 | C.PDOC ---
History Of Present Illness 63 year old male patient presents to the ER with c/o feeling depressed. Patient reports he has suicidal thoughts but no plans. Patient was seen at [facility] twice and was cleared both times. Patient denies any physical complaint. Time Seen by Provider: 06/21/18 15:33 Chief Complaint (Nursing): Psychiatric Evaluation History Per: Patient History/Exam Limitations: no limitations Onset/Duration Of Symptoms: Days Current Symptoms Are (Timing): Still Present Past Medical History Reviewed: Historical Data, Nursing Documentation, Vital Signs Vital Signs: Last Vital Signs Temp 968.0 F H 06/21/18 17:03 Pulse 81 06/21/18 17:03 Resp 16 06/21/18 17:03 BP 127/72 06/21/18 17:03 Pulse Ox 97 06/21/18 17:11 - Medical History PMH: Anxiety, Asthma, Cardia Arrhythmia, Depression, HTN, Hypercholesterolemia, Kidney Stones, Pneumonia, Chronic Kidney Disease, Schizophrenia - [facility] Procedures DESTRUCTION OF ASCENDING COLON, ENDO (07/09/15) ENDOSC POLYPECTOMY OF LG INTEST (05/27/15) EXCISION OF STOMACH, ENDO, DIAGN (07/09/15) INDIV PSYCHOTHERAPY FOR SUBSTANCE ABUSE, COGNITIV BEHAVIORAL (08/05/17) INDIV PSYCHOTHERAPY FOR SUBSTANCE ABUSE, PSYCHOEDUCATION (08/05/17) INDIVID PSYCHOTHERAP NEC (04/28/15) INDIVIDUAL PSYCHOTHERAPY, COGNITIVE-BEHAVIORAL (08/05/17) INDIVIDUAL PSYCHOTHERAPY, SUPPORTIVE (08/05/17) INSERT OF MONITOR DEV INTO CHEST SUBCU/FASCIA, OPEN APPROACH (07/17/16) MEASURE OF ARTERIAL PRESSURE, PERIPHERAL, ELECTRICAL AND RADIO AIRCRAFT MECHANIC APPROACH (07/17/16) MEASUREMENT OF CARDIAC RHYTHM, EXTERNAL APPROACH (07/17/16) PSYCHIAT DRUG THERAP NEC (05/19/15) REMOVE OF MONITOR DEV FROM TRUNK SUBCU/FASCIA, PERC APPROACH (07/23/17) SUPPOR VERBAL PSYCHOTHER (04/28/15) Family History: States: Unknown Family Hx - Social History Hx Tobacco Use: No Hx Alcohol Use: No Hx Substance Use: Yes - Immunization History Hx Tetanus Toxoid Vaccination: Yes Hx Influenza Vaccination: Yes Hx Pneumococcal Vaccination: Yes Review Of Systems Except As Marked, All Systems Reviewed And Found Negative. Psych: Positive for: Suicidal ideation, Other (depressed) Physical Exam - Physical Exam Appears: Non-toxic, No Acute Distress Skin: Normal Color, Warm, Dry Head: Atraumatic, Normacephalic Eye(s): bilateral: Normal Inspection, PERRL, EOMI Oral Mucosa: Moist Throat: Normal Neck: Normal ROM, Supple Chest: Symmetrical, No Deformity Cardiovascular: Rhythm Regular Neurological/Psych: Oriented x3, Normal Speech ED Course And Treatment O2 Sat by Pulse Oximetry: 97 (RA) Pulse Ox Interpretation: Normal Medical Decision Making Medical Decision Making: Impression: depressed Plans: -- blood work -- drug screen -- UA Reassess: Patient is resting comfortably and remains stable. Crisis evaluated patient and cleared him for discharge. Disposition - Disposition Referrals: [facility] [Outside] [facility] [Outside] Disposition: HOME/ ROUTINE Disposition Time: 16:20 Condition: GOOD Additional Instructions: DON LIU, thank you for letting us take care of you today. The emergency medical care you received today was directed at your acute symptoms. If you were prescribed any medication, please fill it and take as directed. It may take several days for your symptoms to resolve. Return to the Emergency Department if your symptoms worsen, do not improve, or if you have any other problems. Please contact your doctor or call one of the physicians/clinics you have been referred to that are listed on the Patient Visit Information form that is included in your discharge packet. Bring any paperwork you were given at discharge with you along with any medications you are taking to your follow up visit. Our treatment cannot replace ongoing medical care by a primary care provider outside of the emergency department. Thank you for allowing the [employer] [employer] team to be part of your care today. Follow up with the clinic for outpatient medical care this week. Instructions: Depression, Adult (DC) Forms: [employer] ([place]) - Clinical Impression Clinical Impression: Depression - Scribe Statement The provider has reviewed the documentation as recorded by the Scribe Chow Do Provider Attestation: All medical record entries made by the Scribe were at my direction and personally dictated by me. I have reviewed the chart and agree that the record accurately reflects my personal performance of the history, physical exam, medical decision making, and the department course for this patient. I have also personally directed, reviewed, and agree with the discharge instructions and disposition.
[2018-06-21 17:04] VITALS: BP 127/72; PULSE 81; RESP 16; TEMP 968
[2018-06-21 17:06] VITALS: O2SAT 97
== END 2018-06-21 17:14 | disposition home or self-care (01) ==
LOC: C.ER 15:13
DX: F32.9 Major depressive disorder, single episode, unspecified (principal); E78.00 Pure hypercholesterolemia, unspecified; F20.9 Schizophrenia, unspecified; I12.9 Hypertensive chronic kidney disease with stage 1 through stage 4 chronic kidney disease, or unspecified chronic kidney disease; N18.9 Chronic kidney disease, unspecified